=== PATIENT | male | born 1965 | race Caucasian/White ===

== ENCOUNTER 2018-09-06 18:44 | Inpatient (IN) ==
[2018-09-06] MEDS ORDERED: Acetaminophen 325 MG Tablet PO PRN (21:34)
[2018-09-06] MEDS ORDERED: Bisacodyl 10 MG Supp RECTAL PRN (21:34)
[2018-09-06] MEDS ORDERED: Potassium Phosphate Inj 30 MMOL in Sodium Chlor 0.9% Inj 250 ML IV.SIG PRN (21:39)
[2018-09-06] MEDS ORDERED: Potassium Chlor 40 mEq Premix 40 MEQ/100 ML PIGGYBACK IV.SIG PRN ×2 (21:39)
[2018-09-06] MEDS ORDERED: Potassium Phosphate 500 MG Soluble Tablet PO PRN ×2 (21:39)
[2018-09-06] MEDS ORDERED: Dextrose 50% in Water 50 ML Vial IV.PUSH PRN (21:39)
[2018-09-06] MEDS ORDERED: Potassium Chlor 20 mEq Premix 20 MEQ/100 ML PIGGYBACK IV.SIG PRN ×2 (21:39)
[2018-09-06] MEDS ORDERED: Potassium Chloride Liq 20 MEQ/15 ML UDC PO PRN ×2 (21:39)
[2018-09-06] MEDS ORDERED: Magnesium Oxide 400 MG Tablet PO PRN (21:39)
[2018-09-06] MEDS ORDERED: Vancomycin Consult Pharmacy OTHER PRN (21:39)
[2018-09-06] MEDS ORDERED: Magnesium Sulfate Inj 2 GM in Sodium Chlor 0.9% Inj 96 ML IV.SIG PRN (21:39)
[2018-09-06] MEDS ORDERED: Sodium Phosphate Inj 30 MMOL in Sodium Chlor 0.9% Inj 250 ML IV.SIG PRN (21:39)
[2018-09-06] MEDS ORDERED: Magnesium Sulfate Inj 4 GM in Sodium Chlor 0.9% Inj 92 ML IV.SIG PRN (21:39)
--- NOTE | 2018-09-06 21:40 | P.HPCC ---
History of Present Illness Service: Critical care medicine Primary Care Physician: UNKNOWN Chief Complaint: Low back pain History of Present Illness: 53-year-old male. Date of admission 09/06/2018. Past medical history includes history of L1/L2 osteomyelitis/MSSA which receives cefazolin via PICC line to the right upper extremity. Also history of hypertension, osteoporosis, COPD, nephrolithiasis and obstructive sleep apnea. Known history of cholelithiasis. In alcohol use he presented to the ED emergency department at [facility] in [place] with increasing low back pain. He is currently taking acetaminophen for pain relief. He is also complaining of nausea vomiting. Denied any focal weakness. Abdominal pain, headache or vision changes. His medication regimen is not clear. Patient was resumed to [facility] on with recurrent osteomized. His history in February 2018 is incision and drainage. He was on antibiotics until March. He had persistent bone pain and presented to the hospital June was found to have lumbar ostium mellitus underwent lumbar laminectomy. He did not receive any antibiotics and was discharged from the hospital in early July. He ran out of the oxycodone was having increasing pain with the hospital. Imaging revealed likely chronic bilateral discitis of L1/L2. He was treated with 5 days IV ceftriaxone using a PICC line as an outpatient. Cultures during the last admission for MSSA sensitive. Patient has been on cefazolin 2 g every 8 hours with a stop date of September 22, 2017. Patient states he has been compliant with his medication regimen. He is having worsening back pain presented to the [facility] for evaluation treatment. MRI of the lumbar spine revealed interval progression of discitis at L1/L2 with minimal progression of vertebral body height loss at L2. Retropulsion of the posterior-superior cortex associated disc bulging central disc protrusion causing moderate spinal canal stenosis. T12 osteomyelitis. Unchanged phlegmon with adjacent psoas musculature and bilateral L2/3 neuroforaminal surrounding is in the L2/4. Patient was accepted by Dr. 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 This includes certification that hospital inpatient services are reasonable and necessary and in the case of services not specified as inpatient-only under 42 CFR 419.22(n), that they are appropriately provided as inpatient services in accordance to with the 2-midnight benchmark under 43 CFR 412.3(e) Estimated Total Length of Stay (Days): 5 Plans for Post Hospital Care: Not yet determined Review of Systems Constitutional: Reports body ache(s), Reports fatigue, Reports fever(s), Reports lack of energy, Reports weight loss, Denies anorexia Eyes: Denies blind spots, Denies blurry vision, Denies bulging eyes Ears, Nose, Mouth, and Throat: Denies bleeding gums, Denies bad breath, Denies poor balance Cardiovascular: Denies chest pain Respiratory: Denies cough, Denies shortness of breath Gastrointestinal: Denies abdominal pain, Denies heartburn, Denies loose stools Genitourinary: Denies side pain, Denies scrotal swelling Musculoskeletal: Reports body aches, Reports muscle weakness, Reports stiffness , Denies abnormal walking Skin/Breast: Denies redness Neurologic: Reports restless legs, Reports weakness, Denies abnormal movements, Denies frequent falls, Denies headache(s), Denies localized weakness, Denies numbness, Denies sensory deficit Psychiatric: Reports anxiety, Denies abnormal sleep pattern Endocrine: Denies cold intolerance, Denies excessive sweating Hematologic/Lymphatic: Denies easy bleeding Allergic/Immunologic: Denies GI upset with certain foods PMFSH - History History Provided By: Patient - Medical History Medical History: Medical History (This Medical Record has been edited. Action required.) Alcohol abuse COPD (chronic obstructive pulmonary disease) Hypertension Nephrolithiasis Obstructive sleep apnea Osteoarthritis History of MRSA infection Onset Date: ~08/05/18 - Surgical History Surgical History: Surgical History (This Medical Record has been edited. Action required.) Chest wall abscess History of cholecystectomy History of gastric bypass History of laminectomy - Family History Family History: Family History (This Medical Record has been edited. Action required.) Other Family history of cancer - Social History I have reviewed the patient's Social History: Yes - Tobacco History Second Hand Smoke Exposure: Yes Smoking Status: Current every day smoker Tobacco Type: Cigars - Alcohol History How Often Do You Have a Drink Containing Alcohol: Monthly or less - Substance Use History Substance History: No History of Abuse Medications and Allergies Active Medications: Active Medications Acetaminophen (Tylenol) 650 mg PO Q6H PRN PRN Reason: Fever >101f Al Hydroxide/Mg Hydroxide (Milk Of [place]) 30 ml PO Q12H PRN PRN Reason: Mild Constipation Albuterol (Albuterol Neb (Radha)) 2.5 mg NEB Q2HR NEB PRN PRN Reason: SHORTNESS OF BREATH/WHEEZING Bisacodyl (Dulcolax Supp) 10 mg RECTAL DAILY PRN PRN Reason: SEVERE CONSITIPATION Chlorhexidine Gluconate (Chlorhexidine 2% Cloth) 3 pack TOPICAL DAILY@0400 RADHA Stop: 09/12/18 03:59 Chlorhexidine Gluconate (Chlorhexidine 2% Cloth) 3 pack TOPICAL DAILY@0400 PRN PRN Reason: Extra cloth needed Stop: 09/12/18 03:59 Dextrose (D50w Vial) 50 ml IV.PUSH UNSCH PRN PRN Reason: PER HYPOGLYCEMIA PROTOCOL Ferrous Sulfate (Ferosul) 325 mg PO DAILY RADHA Gabapentin (Neurontin) 300 mg PO TID RADHA Glucagon (Glucagon Inj) 1 mg OTHER PRN PRN PRN Reason: for Hypoglycemia Protocol Heparin Sodium (Porcine) (Heparin Inj) 5,000 units SQ Q12H RADHA Hydromorphone HCl (Dilaudid Pf Inj) 1 mg IV.PUSH Q4H PRN PRN Reason: PAIN SCALE 6 TO 10 Sodium Chloride (Ns Inj) 1,000 mls @ 84 mls/hr IV.CONT .[id number] RADHA Magnesium Sulfate 4 gm/ Sodium (Chloride) 100 mls @ 50 mls/hr IV.SIG UNSCH PRN PRN Reason: For Magnesium 0.9 - 1.1 mg/dL Magnesium Sulfate 2 gm/ Sodium (Chloride) 100 mls @ 50 mls/hr IV.SIG UNSCH PRN PRN Reason: For Magnesium 1.2 - 1.6 mg/dL Potassium Chloride (Kcl 40 Meq Premix Inj) 40 meq in 100 mls @ 25 mls/hr IV.SIG Q2H PRN PRN Reason: For Potassium 2.8 - 3.2 mEq/L Potassium Chloride (Kcl 20 Meq Premix Inj) 20 meq in 100 mls @ 50 mls/hr IV.SIG Q2H PRN PRN Reason: For Potassium 3.3 - 3.5 mEq/L Potassium Chloride (Kcl 40 Meq Premix Inj) 40 meq in 100 mls @ 25 mls/hr IV.SIG UNSCH PRN PRN Reason: For Potassium 3.3 - 3.5 mEq/L Potassium Chloride (Kcl 20 Meq Premix Inj) 20 meq in 100 mls @ 50 mls/hr IV.SIG Q2H PRN PRN Reason: For Potassium 2.8 - 3.2 mEq/L Potassium Phosphate 30 mmol/ (Sodium Chloride) 260 mls @ 42 mls/hr IV.SIG UNSCH PRN PRN Reason: SEE LABEL COMMENTS Sodium Phosphate 30 mmol/ (Sodium Chloride) 260 mls @ 42 mls/hr IV.SIG UNSCH PRN PRN Reason: For Phosphorus < 2.5 mg/dL Insulin Aspart (Novolog Insulin Correctional Sugar Inj) 0 unit SQ Q6HR RADHA; Protocol Lactulose (Lactulose Liq) 30 ml PO DAILY PRN PRN Reason: SEVERE CONSITIPATION Lisinopril (Prinivil) 10 mg PO BID [facility] Magnesium Oxide (Mag-Ox) 800 mg PO UNSCH PRN PRN Reason: For Magnesium 1.2 - 1.6 mg/dL Metoprolol Tartrate (Lopressor) 100 mg PO BID [facility] Ondansetron HCl (Zofran Inj) 4 mg IV.PUSH Q6H PRN PRN Reason: NAUSEA OR VOMITING Oxycodone/Acetaminophen (Percocet 5/325 Mg) 1 tab PO Q4H PRN PRN Reason: PAIN SCALE 1 TO 5 Pantoprazole Sodium (Protonix) 40 mg PO DAILY [facility] Potassium Chloride (Kcl Liq) 40 meq PO UNSCH PRN PRN Reason: Potassium level 3.3-3.5 mEq/L Potassium Chloride (Kcl Liq) 40 meq PO UNSCH PRN PRN Reason: POTASSIUM LESS THAN 3.5 Potassium Phosphate (K-Phos Original) 2,000 mg PO Q4H PRN PRN Reason: Phosphorus Less Than 2.5 mg/dL Potassium Phosphate (K-Phos Original) 2,000 mg PO UNSCH PRN PRN Reason: SEE LABEL COMMENTS Senna/Docusate Sodium ([place]-Colace) 1 tab PO BID [facility] Sennosides (Senokot) 17.2 mg PO Q12H PRN PRN Reason: Moderate Constipation Sodium Chloride (Ns Flush) 2 ml IV.FLUSH BID [facility] Sodium Chloride (Ns Flush) 2 ml IV.FLUSH PRN PRN PRN Reason: FLUSH AFTER USING IV ACCESS Tizanidine HCl (Zanaflex) 4 mg PO BID RADHA Allergies Allergy/AdvReac Type Severity Reaction Status Date / Time No Known Allergies Allergy Uncoded 08/17/18 13:28 Exam - Constitutional no acute distress - Routine HEENT Exam Head: Present: normocephalic, atraumatic Eye: Present: EOMI, PERRL, normal accommodation ENT: Present: mucous membranes moist - Routine Neck Exam Present: supple, full ROM. Absent: JVD - Routine Chest/Breast/Axilla Exam Chest wall: Absent: tenderness Breast: Absent: tenderness Axillae: Absent: lymphadenopathy - Routine Respiratory Exam Present: CTA bilaterally. Absent: accessory muscle use - Routine Cardiovascular Exam Present: RRR, S1, S2. Absent: murmur - Routine Abdominal Exam Present: soft, normoactive bowel sounds - Routine Extremities Exam Absent: cyanosis, clubbing, edema - Routine Skin Exam Present: intact - Routine Neurological Exam Present: alert, oriented X3, CN II-XII intact, motor deficit (4-5 strength bilateral lower extreme). Absent: sensory deficit Septic Shock Reassessment Septic shock perfusion: reassessment completed Caprini VTE Risk Assessment Caprini VTE Risk Assessment: No/Low Risk (score <= 1) Caprini Risk Assessment Model: Point Value = 1 Point Value = 2 Point Value = 3 Point Value = 5 Age 41-60 Minor surgery BMI > 25 kg/m2 Swollen legs Varicose veins or History of unexplained or recurrent spontaneous Oral contraceptives or hormone replacement Sepsis (< 1 month) Serious lung disease, including pneumonia (< 1 month) Abnormal pulmonary function Acute myocardial infarction Congestive heart failure (< 1 month) History of inflammatory bowel disease Medical patient at bed rest Age 61-74 Arthroscopic surgery Major open surgery (> 45 min) Laparoscopic surgery (> 45 min) Malignancy Confined to bed (> 72 hours) Immobilizing plaster cast Central venous access Age >= 75 History of VTE Family history of VTE Factor V Leiden Prothrombin [id number] Lupus anticoagulant Anticardiolipin antibodies Elevated serum homocysteine Heparin-induced thrombocytopenia Other congenital or acquired thrombophilia Stroke (< 1 month) Elective arthroplasty Hip, pelvis, or leg fracture Acute spinal cord injury (< 1 month) Prophylaxis Regimen: Total Risk Factor Score Risk Level Prophylaxis Regimen 0-1 Low Early ambulation 2 Moderate Order ONE of the following: *Sequential Compression Device (SCD) *Heparin 5000 units SQ BID 3-4 Higher Order ONE of the following medications: *Heparin 5000 units SQ TID *Enoxaparin/Lovenox 40 mg SQ daily (WT < 150 kg, CrCl > 30 mL/min) *Enoxaparin/Lovenox 30 mg SQ daily (WT < 150 kg, CrCl > 10-29 mL/min) *Enoxaparin/Lovenox 30 mg SQ BID (WT < 150 kg, CrCl > 30 mL/min) AND/OR *Sequential Compression Device (SCD) 5 or more Highest Order ONE of the following medications: *Heparin 5000 units SQ TID (Preferred with Epidurals) *Enoxaparin/Lovenox 40 mg SQ daily (WT < 150 kg, CrCl > 30 mL/min) *Enoxaparin/Lovenox 30 mg SQ daily (WT < 150 kg, CrCl > 10-29 mL/min) *Enoxaparin/Lovenox 30 mg SQ BID (WT < 150 kg, CrCl > 30 mL/min) AND *Sequential Compression Device (SCD) Assessment and Plan - Problem List (1) Osteomyelitis of lumbar spine Code(s): M46.26 - Osteomyelitis of vertebra, lumbar region Status: Chronic (2) 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 every 6 hours as needed fever Hydrocodone/acetaminophen 5/324 tablet every 4 hours. Pain 1 through 5 Hydromorphone 1 mg IV every 4 hours as needed pain 6 through 10 Continue gabapentin 300 mg 3 times daily for neuropathy Load MRI imaging from [facility] c/s CV: Essential hypertension Continue metoprolol tartrate 50 mg twice daily and lisinopril 10 mg twice daily Currently on normal saline 84 cc an hour Not requiring vasopressors Follow-up on EKG Resp: History of COPD Obstructive sleep apnea Nasal cannula to maintain saturations greater than equal 92% Incentive spirometry while awake As needed albuterol since every 2 hours. Dyspnea Chest x-ray ordered Patient is CT of the chest which revealed T6/7 osteomyelitis last admission. GI: History of cholecystectomy Advance diet as tolerated/diabetic Pantoprazole for GI prophylaxis Dexatrim/senna 1 tablet twice daily for bowel regimen : Straight catheterization/Benz catheter if indicated Endo: Sliding scale insulin Accu-Cheks every 6 hours to maintain euglycemia Renal: History of nephrolithiasis Creatinine within normal limits at prior facility Monitor urine output Accurate I's and O's Heme: Normocytic anemia History of T-cell receptor positive. TCR beta gene negative. Likely nonneoplastic lymphoid proliferation Monitor CBC daily. Follow trends. Check coag no indication for transfusion of blood products at this time ID: MSSA bacteremia Lumbar osteomyelitis Remote history of pneumonia Previously on cefazolin 2 g IV every 8 hours stop date of 6 Blood cultures x2, CRP and ESR will be drawn Start on vancomycin, ceftriaxone and metronidazole Infectious disease consultation FEN: Replace electrolytes as clinically indicated Psych: PT evaluate and treat Access -Utilize peripheral IV. Patient has a right upper extremity PICC line Prophylaxis -GI -pantoprazole -DVT -SCD/heparin subcu Level 3 H&P (3) COPD (chronic obstructive pulmonary disease) Qualifiers: COPD type: unspecified COPD Qualified Code(s): J44.9 - Chronic obstructive pulmonary disease, unspecified
[2018-09-06] MEDS ORDERED: Heparin - SQ 10,000 UNITS/ML Vial SQ SCH (22:00)
[2018-09-06] MEDS: Sod Chloride 0.9% Inj 1,000 ML IV.CONT SCH (22:51)
[2018-09-06] MEDS: HYDROmorphone PF Inj 1 MG/ML Ampul IV.PUSH PRN (23:04)
[2018-09-07] MEDS: Vancomycin Inj 1,000 MG in Sodium Chlor 0.9% Inj 250 ML IV.SIG SCH ×4 (03:13→23:21)
[2018-09-07] MEDS: Chlorhexidine Gluconate 2% 1 Pack (2 Cloths) TOPICAL SCH (03:14)
[2018-09-07] MEDS: HYDROmorphone PF Inj 1 MG/ML Ampul IV.PUSH PRN ×2 (03:14→08:41)
[2018-09-07] MEDS: Insulin NovoLOG Aspart Correctional Sugar Inj SQ SCH ×5 (03:17→23:36)
[2018-09-07 03:55] LABS: Baso % (Auto) 0.4 % (0.0-2.0); Eos # (Auto) 0.2 th/mm3 (0.0-0.4); Eos % (Auto) 2.8 % (0.0-4.0); Hematocrit 32.1 % (39.0-51.0); Hemoglobin 10.6 gm/dL (13.0-17.0); Lymph % (Auto) 30.6 % (9.0-44.0); Mean Corpuscular HGB Conc 33.2 % (32.0-36.0); Mean Corpuscular Hemoglobin 28.5 pg (27.0-34.0); Mean Corpuscular Volume 85.9 fL (80.0-100.0); Mono # (Auto) 0.4 th/mm3 (0.0-0.9); Mono % (Auto) 6.7 % (0.0-8.0); Neut # (Auto) 3.9 th/mm3 (1.8-7.7); Neut % (Auto) 59.5 % (16.0-70.0); Platelet Count 292 th/mm3 (150-450); Red Blood Count 3.73 mil/mm3 (4.50-5.90); Red Cell Distribution Width 18.5 % (11.6-17.2); White Blood Count 6.6 th/mm3 (4.0-11.0)
[2018-09-07] MEDS ORDERED: Chlorhexidine Gluconate 2% 1 Pack (2 Cloths) TOPICAL PRN (04:00)
[2018-09-07 04:02] LABS: Activated Partial Thrombo Time 26.5 sec (23.4-31.7)
[2018-09-07 04:23] LABS: Alanine Aminotransferase 16 U/L (12-78); Albumin 3.1 g/dL (3.4-5.0); Anion Gap 6 meq/L (5-15); Aspartate Aminotransferase 18 U/L (15-37); Blood Urea Nitrogen 9 mg/dL (7-18); Calcium 8.2 mg/dL (8.5-10.1); Carbon Dioxide 24.5 meq/L (21.0-32.0); Chloride 111 meq/L (98-107); Glomerular Filtration Rate Greater Than 89 mL/min (>89); Glucose,Random 98 mg/dL (74-106); Magnesium 1.7 mg/dL (1.5-2.5); Phosphorus 3.1 mg/dL (2.5-4.9); Potassium 3.8 meq/L (3.5-5.1); Sodium 141 meq/L (136-145)
[2018-09-07 04:25] LABS: Alkaline Phosphatase 127 U/L (45-117); Total Protein 7.6 g/dL (6.4-8.2)
[2018-09-07] MEDS: Senna/Docusate Sodium 8.6/50 MG Tablet PO SCH ×2 (08:31→20:54)
[2018-09-07] MEDS: Lisinopril 10 MG Tablet PO SCH ×2 (08:31→20:54)
[2018-09-07] MEDS: Gabapentin 300 MG Capsule PO SCH ×4 (08:32→18:34)
[2018-09-07] MEDS: Ferrous Sulfate 325 MG Tablet PO SCH (08:32)
[2018-09-07] MEDS: Metoprolol Tartrate 50 MG Tablet PO SCH ×2 (08:32→20:54)
[2018-09-07] MEDS ORDERED: Metoprolol Tartrate 50 MG Tablet PO SCH (09:00)
[2018-09-07] MEDS ORDERED: HYDROmorphone PF Inj 2 MG/ML Vial IV.PUSH ONE (10:15)
--- NOTE | 2018-09-07 13:13 | P.PNCC ---
Subjective Subjective Remarks/Hospital Course: 53-year-old male. Date of admission 09/06/2018. Past medical history includes history of L1/L2 osteomyelitis/MSSA which receives cefazolin via PICC line to the right upper extremity. Also history of hypertension, osteoporosis, COPD, nephrolithiasis and obstructive sleep apnea. Known history of cholelithiasis. In alcohol use he presented to the ED emergency department at [facility] in [place] with increasing low back pain. He is currently taking acetaminophen for pain relief. He is also complaining of nausea vomiting. Denied any focal weakness. Abdominal pain, headache or vision changes. His medication regimen is not clear. Patient was resumed to [facility] on with recurrent osteomized. His history in February 2018 is incision and drainage. He was on antibiotics until March. He had persistent bone pain and presented to the hospital June was found to have lumbar ostium mellitus underwent lumbar laminectomy. He did not receive any antibiotics and was discharged from the hospital in early July. He ran out of the oxycodone was having increasing pain with the hospital. Imaging revealed likely chronic bilateral discitis of L1/L2. He was treated with 5 days IV ceftriaxone using a PICC line as an outpatient. Cultures during the last admission for MSSA sensitive. Patient has been on cefazolin 2 g every 8 hours with a stop date of September 22, 2017. Patient states he has been compliant with his medication regimen. He is having worsening back pain presented to the [facility] for evaluation treatment. MRI of the lumbar spine revealed interval progression of discitis at L1/L2 with minimal progression of vertebral body height loss at L2. Retropulsion of the posterior-superior cortex associated disc bulging central disc protrusion causing moderate spinal canal stenosis. T12 osteomyelitis. Unchanged phlegmon with adjacent psoas musculature and bilateral L2/3 neuroforaminal surrounding is in the L2/4. Patient was accepted by Dr. Melendez 09/07/18: Patient lying in bed appears to be in significant pain but no focal deficits. Neurosurgery evaluation completed. MRI of the lumbar spine ordered as well as CT-guided biopsy. Infectious disease consult is pending at this. Currently on ceftriaxone and vancomycin Objective Vital Signs / I&O: Vital Signs 09/06/18 21:12 09/06/18 21:13 09/06/18 21:48 Temperature 98.6 F Pulse Rate 101 H Respiratory Rate 12 Blood Pressure 150/80 H Pulse Oximetry 99 99 100 09/06/18 22:00 09/06/18 23:00 09/06/18 23:24 Temperature Pulse Rate 104 H 105 H Respiratory Rate 13 19 18 Blood Pressure 122/68 147/78 H Pulse Oximetry 99 100 09/07/18 00:00 09/07/18 00:15 09/07/18 01:00 Temperature 97.8 F Pulse Rate 116 H 113 H 114 H Respiratory Rate 12 14 Blood Pressure 109/57 L 116/68 Pulse Oximetry 99 97 09/07/18 02:00 09/07/18 03:00 09/07/18 03:44 Temperature Pulse Rate 114 H 107 H Respiratory Rate 13 15 16 Blood Pressure 107/67 106/58 L Pulse Oximetry 98 100 09/07/18 04:00 09/07/18 04:23 09/07/18 05:00 Temperature 97.3 F L Pulse Rate 107 H 109 H 100 H Respiratory Rate 12 16 15 Blood Pressure 107/65 118/74 Pulse Oximetry 98 99 09/07/18 06:00 09/07/18 06:28 09/07/18 07:00 Temperature Pulse Rate 107 H 104 H 101 H Respiratory Rate 12 11 L Blood Pressure 119/71 126/65 Pulse Oximetry 99 99 09/07/18 08:00 09/07/18 09:00 Temperature 99.3 F Pulse Rate 101 H 97 H Respiratory Rate 13 19 Blood Pressure 128/69 129/72 Pulse Oximetry 99 99 Intake & Output 09/06/18 09/07/18 09/07/18 18:59 06:59 18:59 Intake Total 550 / 550 450 / 450 Output Total 375 / 375 Balance 175 / 175 450 / 450 Weight 71.3 kg Intake: IV 550 / 550 450 / 450 Vancomycin Inj 1,000 MG In NS 250 / 250 250 / 250 Inj 250 ML @ 250 mls/hr IV.SIG Q8H MARIVEL Rx#:[id number] Rocephin Inj 2,000 MG In NS Inj 100 / 100 100 / 100 100 ML @ 200 mls/hr IV.SIG Q12H MARIVEL Rx#:[id number] Flagyl 500 MG Inj 100 ML @ 100 200 / 200 100 / 100 mls/hr IV.SIG Q6H MARIVEL Rx#: [id number] Output: Urine 375 / 375 Other: # Voids 1 Weight On Admission 71.3 kg Result Diagrams: 09/07/18 02:46 09/07/18 02:46 Objective Remarks: - Constitutional Moderate distress due to pain. - Routine HEENT Exam Head: Present: normocephalic, atraumatic Eye: Present: EOMI, PERRL, normal accommodation ENT: Present: mucous membranes moist - Routine Neck Exam Present: supple, full ROM. Absent: JVD - Routine Respiratory Exam Present: CTA bilaterally. Absent: accessory muscle use - Routine Cardiovascular Exam Present: RRR, S1, S2. Absent: murmur - Routine Abdominal Exam Present: soft, normoactive bowel sounds - Routine Extremities Exam Absent: cyanosis, clubbing, edema - Routine Skin Exam Present: intact - Routine Neurological Exam Present: alert, oriented X3, CN II-XII intact, motor deficit (4-5 strength bilateral lower extreme). 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 every 6 hours as needed fever Hydrocodone/acetaminophen 5/324 tablet every 4 hours. Pain 1 through 5 Hydromorphone 1 mg IV every 4 hours as needed pain 6 through 10, increased to 2 mg every 4 hours Continue gabapentin 300 mg 3 times daily for neuropathy Load MRI imaging from [facility] MRI and CT guided biopsy requested by neurosurgery Neurosurgery and infectious disease official consult is pending CV: Essential hypertension Continue metoprolol tartrate 50 mg twice daily and lisinopril 10 mg twice daily Currently on normal saline 84 cc an hour Not requiring vasopressors Follow-up on EKG Resp: History of COPD Obstructive sleep apnea Nasal cannula to maintain saturations greater than equal 92% Incentive spirometry while awake As needed albuterol since every 2 hours. Dyspnea Chest x-ray ordered Patient is CT of the chest which revealed T6/7 osteomyelitis last admission. GI: History of cholecystectomy Advance diet as tolerated/diabetic Pantoprazole for GI prophylaxis Dexatrim/senna 1 tablet twice daily for bowel regimen : Straight catheterization/Benz catheter if indicated Endo: Sliding scale insulin Accu-Cheks every 6 hours to maintain euglycemia Renal: History of nephrolithiasis Creatinine within normal limits at prior facility Monitor urine output Accurate I's and O's Heme: Normocytic anemia History of T-cell receptor positive. TCR beta gene negative. Likely nonneoplastic lymphoid proliferation Monitor CBC daily. Follow trends. no indication for transfusion of blood products at this time ID: MSSA bacteremia Lumbar osteomyelitis Remote history of pneumonia Previously on cefazolin 2 g IV every 8 hours stop date of 6 Blood cultures x2, CRP and ESR will be drawn Start on vancomycin, ceftriaxone and metronidazole New MRI and CT guided biopsy requested by neurosurgery Neurosurgery and infectious disease official consult is pending FEN: Replace electrolytes as clinically indicated Psych: PT evaluate and treat Access -Utilize peripheral IV. Patient has a right upper extremity PICC line Prophylaxis -GI -pantoprazole -DVT -SCD/heparin subcu Level 2 Consult hospitalist to assume care in a.m. transferred to [facility] with telemetry (3) COPD (chronic obstructive pulmonary disease) Qualifiers: COPD type: unspecified COPD Qualified Code(s): J44.9 - Chronic obstructive pulmonary disease, unspecified
[2018-09-07] MEDS: HYDROmorphone PF Inj 2 MG/ML Vial IV.PUSH PRN ×2 (13:46→23:36)
[2018-09-07] MEDS ORDERED: fentaNYL Citrate Inj 250 MCG/5 ML Ampul ONE (15:27)
--- NOTE | 2018-09-07 15:54 | MR ---
EXAM DATE: 09/07/2018 3:36 PM EST AGE/SEX: 53 years / Male INDICATIONS: Osteomyelitis. CLINICAL DATA: This is the patient's initial encounter. Patient reports that signs and symptoms have been present for 1 day and indicates a pain score of Nonresponsive. MEDICAL/SURGICAL HISTORY: Carcinoma, pancreas. Gastric bypass. [place]PAR[place] [facility] [place]. . TECHNIQUE: Multiplanar, multisequence MRI examination of the lumbar spine was performed without and with 7 ml Gadavist (gadobutrol) contrast as a single exam dose. FINDINGS: There is near complete loss of disc space with a cleft of fluid intensity at L1-2 with associated ero sive bony change and compression deformity of the inferior endplate of L1 and superior endplate of L2 . There is retropulsion of the posterior cortex at L2 which along with bilateral facet osteophytes na rrows the central canal to approximately 8 mm. Sagital alignment is otherwise maintained. There is al so focal bone marrow edema and enhancement involving the anterior right inferior endplate of T12 vert ebral body. Mild ill-defined abnormal enhancement and edema involving the prevertebral soft tissues w ithout focal fluid collection. No evidence for epidural abscess or focal fluid collection. There is a subcutaneous peripherally enhancing fluid collection centered at T12-L1 which measures approximately 0.5 x 3.0 x 2.4 cm. Discs: There is diffuse desiccation involving the disc and the remainder of the lumbar spine. Conus: Normal level and configuration. Paraspinal Soft Tissues: No significantfocal renal abnormalities in the visualized kidneys. Visualize d aorta is non-aneurysmal. No Retroperitoneal adenopathy. T12-L1: The thecal sac has a normal diameter. No evidence of disc bulge or protrusion. The neural foramina are patent bilaterally. L2-L3: The thecal sac has a normal diameter. No evidence of disc bulge or protrusion. The neural foramina are patent bilaterally. L3-L4: The thecal sac has a normal diameter. No evidence of disc bulge or protrusion. The neural foramina are patent bilaterally. L4-L5: Mild diffuse disc bulge, minimal ligamentum flavum hypertrophy. Minimal effacement anterior thecal sac. No significant neural foraminal stenosis. L5-S1: Minimal diffuse disc bulge and mild bilateral facet arthropathy. No significant canal or john ral foraminal stenosis. CONCLUSION: 1. Findings consistent with discitis and osteomyelitis at L1-2 with prominent compression deformity of the L2 superior endplate and retropulsion of the posterior L2 cortex resulting in central canal na rrowing to about 8 mm. There is a cleft of fluid signal corresponding to the disc space. Consider aty pical infection. 2. Focal signal abnormality and abnormal enhancement involving the right anterior inferior endplate of T12 concerning for second focus of osteomyelitis. 3. No evidence for epidural abscess. 4. Minimal ill-defined prevertebral phlegmonous changes without focal drainable fluid collection. 5. Subcutaneous 2.5 x 3.0 x 2.4 cm abscess in the posterior soft tissues at the T12-L1 level. Electronically signed by: Fransisco Lux MD Board Certified Radiologist 09/07/2018 3:52 PM EST
--- NOTE | 2018-09-07 16:18 | P.RAD ---
Post Procedure Progress Note - Pre Procedure Diagnosis (1) Discitis of lumbar region - Post Procedure Diagnosis (1) Discitis of lumbar region - Procedure Information Procedure Date: 09/07/18 Supervising Radiologist: Justin Woo MD Estimated blood loss (mL): 0 Anesthesia: Local, Conscious Sedation - Plan of Activity Patient to Unit: Critical Care Patient Condition: Fair Additional Comments: Aspiration of the disc at the L1/L2 level completed. 5cc of serous hemorrhagic fluid removed from the disc space. Full dictated report to follow See PACS Report for procedural detail/treatment.
--- NOTE | 2018-09-07 16:26 | P.CONID ---
History of Present Illness Service: Infectious Disease Consult date: 09/07/18 Requesting Physician: Nam Galeana Reason for Consult: Evaluation and Mment of Infective discitis. Primary Care Provider: UNKNOWN Chief Complaint: Low back pain History of Present Illness: Mr. Mcgraw is a 53 y/o CM with PMHx of left anterior chest wall/ clavicular abscess in March 2018. He reports he had back pain even then and the focus of care remained his clavicle. Patient underwent incision and drainage on 2017 and was prescribed an antibiotic course. He then presented to the emergency department on 06/19/2018 with severe lumbago. It appears that during his February admission for his left chest wall infection he was diagnosed with MSSA bacteremia and chest wall abscess. Again during his June admission patient had biopsy of the lumbar spine area and was found to have MSSA and therefore was discharged on ceftriaxone IV using a PICC line and was supposed to follow-up with infectious disease. It appears that during his June 2018 admission patient underwent an L1 laminectomy patient then presented to [facility] on August 05, 2018 due to persistent back pain despite treatment with IV antibiotics. An MRI of the spine was done which showed osteomyelitis discitis of L1 and L2 with peripheral phlegmon extending into the ventral epidural space. No drainable abscess identified. Laminectomy of L1 to small fluid collection in the subcutaneous soft tissues also identified but deemed as possible postsurgical versus infectious process. He also has myositis of the proximal psoas muscles based on that imaging from August 05, 2018. Patient was then transferred to [facility] for possible neurosurgery. Neurosurgery did not feel any need for surgical intervention. He had blood cultures from this admission which was positive for MSSA. He was treated with IV Ancef and discharged on this regimen as he was thought to be improving. Patient had a PICC line on discharge. Patients ex agreed to take him and complete his treatment during that admission. He followed up with Dr.Reba Mathias per my discussion with her. has been concerned about patients compliance with IV antibiotics. was informed patients was not willing to keep him in her home and there was a concern for patient being homeless. These facts need to be confirmed with and patients home health company. Perhaps a bag count for Ancef IV may help to see if he has infused the appropriate amount of bags. MRI appears improved based on response. Patient had his PICC line removed after admission, repeat blood cultures are pending. Patient also had IR guided aspiration of spine ordered by Neurosurgery. At the time of my evaluation,patient is in the [facility] under critical care service but hemodynamically stable. He is oriented x 2 for me and was able to move all 4 extremities. [facility] - History History Provided By: Patient - Medical History Medical History: Medical History (Last Reviewed 09/07/18 @ 14:10 by Alayna Dawson PT) Alcohol abuse COPD (chronic obstructive pulmonary disease) Hypertension Nephrolithiasis Obstructive sleep apnea Osteoarthritis Pancreatic cancer History of MRSA infection Onset Date: ~08/05/18 - Surgical History Surgical History: Surgical History (Last Reviewed 09/07/18 @ 14:10 by Alayna Dawson PT) Chest wall abscess History of cholecystectomy History of gastric bypass History of laminectomy - Family History Family History: Family History (This Medical Record has been edited. Action required.) Other Family history of cancer - Tobacco History Second Hand Smoke Exposure: Yes Tobacco Use In Past 30 Days: Yes Smoking Status: Current every day smoker Tobacco Type: Cigars - Alcohol History How Often Do You Have a Drink Containing Alcohol: Monthly or less - Substance Use History Substance History: No History of Abuse - Travel History Recent Travel in the [place] Within the Last 8 Weeks: No Recent Travel Out of the Country Within the Last 8 Weeks: No - Immunization History Tetanus Immunization: >5 Years Hx Influenza Vaccine This Season: Yes Medications and Allergies Active Medications: Active Medications Acetaminophen (Tylenol) 650 mg PO Q6H PRN PRN Reason: Fever >101f Al Hydroxide/Mg Hydroxide (Milk Of [place] Liq) 30 ml PO Q12H PRN PRN Reason: Mild Constipation Albuterol (Albuterol Neb (Prn)) 2.5 mg NEB Q2HR NEB PRN PRN Reason: SHORTNESS OF BREATH/WHEEZING Bisacodyl (Dulcolax Supp) 10 mg RECTAL DAILY PRN PRN Reason: SEVERE CONSITIPATION Chlorhexidine Gluconate (Chlorhexidine 2% Cloth) 3 pack TOPICAL DAILY@0400 [facility] Stop: 09/12/18 03:59 Last Admin: 09/07/18 03:14 Dose: 3 pack Chlorhexidine Gluconate (Chlorhexidine 2% Cloth) 3 pack TOPICAL DAILY@0400 PRN PRN Reason: Extra cloth needed Stop: 09/12/18 03:59 Dextrose (D50w Vial) 50 ml IV.PUSH UNSCH PRN PRN Reason: PER HYPOGLYCEMIA PROTOCOL Ferrous Sulfate (Ferosul) 325 mg PO DAILY [facility] Last Admin: 09/07/18 08:32 Dose: 325 mg Gabapentin (Neurontin) 300 mg PO TID [facility] Last Admin: 09/07/18 12:21 Dose: 300 mg Glucagon (Glucagon Inj) 1 mg OTHER PRN PRN PRN Reason: for Hypoglycemia Protocol Heparin Sodium (Porcine) (Heparin Inj) 5,000 units SQ Q12H [facility] Last Admin: 09/06/18 22:52 Dose: 5,000 units Hydromorphone HCl (Dilaudid Pf Inj) 2 mg IV.PUSH Q4H PRN PRN Reason: PAIN SCALE 6 TO 10 Last Admin: 09/07/18 13:46 Dose: 2 mg Sodium Chloride (Ns Inj) 1,000 mls @ 84 mls/hr IV.CONT .[id number] [facility] Last Admin: 09/06/18 22:51 Dose: 84 mls/hr Magnesium Sulfate 4 gm/ Sodium (Chloride) 100 mls @ 50 mls/hr IV.SIG UNSCH PRN PRN Reason: For Magnesium 0.9 - 1.1 mg/dL Magnesium Sulfate 2 gm/ Sodium (Chloride) 100 mls @ 50 mls/hr IV.SIG UNSCH PRN PRN Reason: For Magnesium 1.2 - 1.6 mg/dL Potassium Chloride (Kcl 40 Meq Premix Inj) 40 meq in 100 mls @ 25 mls/hr IV.SIG Q2H PRN PRN Reason: For Potassium 2.8 - 3.2 mEq/L Potassium Chloride (Kcl 20 Meq Premix Inj) 20 meq in 100 mls @ 50 mls/hr IV.SIG Q2H PRN PRN Reason: For Potassium 3.3 - 3.5 mEq/L Potassium Chloride (Kcl 40 Meq Premix Inj) 40 meq in 100 mls @ 25 mls/hr IV.SIG UNSCH PRN PRN Reason: For Potassium 3.3 - 3.5 mEq/L Potassium Chloride (Kcl 20 Meq Premix Inj) 20 meq in 100 mls @ 50 mls/hr IV.SIG Q2H PRN PRN Reason: For Potassium 2.8 - 3.2 mEq/L Potassium Phosphate 30 mmol/ (Sodium Chloride) 260 mls @ 42 mls/hr IV.SIG UNSCH PRN PRN Reason: SEE LABEL COMMENTS Sodium Phosphate 30 mmol/ (Sodium Chloride) 260 mls @ 42 mls/hr IV.SIG UNSCH PRN PRN Reason: For Phosphorus < 2.5 mg/dL Ceftriaxone Sodium 2,000 mg/ (Sodium Chloride) 100 mls @ 200 mls/hr IV.SIG Q12H [facility] Last Infusion: 09/07/18 11:05 Dose: Infused Metronidazole/Sodium Chloride (Flagyl 500 Mg Inj) 100 mls @ 100 mls/hr IV.SIG Q6H [facility] Last Infusion: 09/07/18 12:00 Dose: Infused Vancomycin HCl 1,000 mg/ (Sodium Chloride) 250 mls @ 250 mls/hr IV.SIG Q8H [facility] Last Infusion: 09/07/18 10:22 Dose: Infused Insulin Aspart (Novolog Insulin Correctional Sugar Inj) 0 unit SQ Q6HR [facility]; Protocol Last Admin: 09/07/18 12:21 Dose: Not Given Lactulose (Lactulose Liq) 30 ml PO DAILY PRN PRN Reason: SEVERE CONSITIPATION Lisinopril (Prinivil) 10 mg PO BID [facility] Last Admin: 09/07/18 08:31 Dose: 10 mg Magnesium Oxide (Mag-Ox) 800 mg PO UNSCH PRN PRN Reason: For Magnesium 1.2 - 1.6 mg/dL Metoprolol Tartrate (Lopressor) 50 mg PO BID [facility] Last Admin: 09/07/18 08:32 Dose: 50 mg Miscellaneous Information ([facility] Ordered Lab Info) 0 each OTHER ONCE ONE Stop: 09/07/18 23:46 Mupirocin (Bactroban 2% Nasal Oint) 1 applicatio EACH NARE BID [facility] Stop: 09/12/18 09:01 Ondansetron HCl (Zofran Inj) 4 mg IV.PUSH Q6H PRN PRN Reason: NAUSEA OR VOMITING Oxycodone/Acetaminophen (Percocet 5/325 Mg) 1 tab PO Q4H PRN PRN Reason: PAIN SCALE 1 TO 5 Last Admin: 09/07/18 10:10 Dose: 1 tab Pantoprazole Sodium (Protonix) 40 mg PO DAILY [facility] Last Admin: 09/07/18 08:32 Dose: 40 mg Pharmacy Profile Note (Vancomycin Consult Pharmacy) 1 each OTHER UNSCH PRN PRN Reason: Pharmacy to dose Potassium Chloride (Kcl Liq) 40 meq PO UNSCH PRN PRN Reason: Potassium level 3.3-3.5 mEq/L Potassium Chloride (Kcl Liq) 40 meq PO UNSCH PRN PRN Reason: POTASSIUM LESS THAN 3.5 Potassium Phosphate (K-Phos Original) 2,000 mg PO Q4H PRN PRN Reason: Phosphorus Less Than 2.5 mg/dL Potassium Phosphate (K-Phos Original) 2,000 mg PO UNSCH PRN PRN Reason: SEE LABEL COMMENTS Senna/Docusate Sodium ([place]-Colace) 1 tab PO BID [facility] Last Admin: 09/07/18 08:31 Dose: 1 tab Sennosides (Senokot) 17.2 mg PO Q12H PRN PRN Reason: Moderate Constipation Sodium Chloride (Ns Flush) 2 ml IV.FLUSH BID [facility] Last Admin: 09/07/18 08:32 Dose: 2 ml Sodium Chloride (Ns Flush) 2 ml IV.FLUSH PRN PRN PRN Reason: FLUSH AFTER USING IV ACCESS Tizanidine HCl (Zanaflex) 4 mg PO BID [facility] Last Admin: 09/07/18 08:32 Dose: 4 mg Allergies Allergy/AdvReac Type Severity Reaction Status Date / Time No Known Allergies Allergy none Uncoded 09/06/18 23:22 Exam Vital signs: Vital Signs 09/06/18 21:12 09/06/18 21:13 09/06/18 21:48 Temperature 98.6 F Pulse Rate 101 H Respiratory Rate 12 Blood Pressure 150/80 H Pulse Oximetry 99 99 100 09/06/18 22:00 09/06/18 23:00 09/06/18 23:24 Temperature Pulse Rate 104 H 105 H Respiratory Rate 13 19 18 Blood Pressure 122/68 147/78 H Pulse Oximetry 99 100 09/07/18 00:00 09/07/18 00:15 09/07/18 01:00 Temperature 97.8 F Pulse Rate 116 H 113 H 114 H Respiratory Rate 12 14 Blood Pressure 109/57 L 116/68 Pulse Oximetry 99 97 09/07/18 02:00 09/07/18 03:00 09/07/18 03:44 Temperature Pulse Rate 114 H 107 H Respiratory Rate 13 15 16 Blood Pressure 107/67 106/58 L Pulse Oximetry 98 100 09/07/18 04:00 09/07/18 04:23 09/07/18 05:00 Temperature 97.3 F L Pulse Rate 107 H 109 H 100 H Respiratory Rate 12 16 15 Blood Pressure 107/65 118/74 Pulse Oximetry 98 99 09/07/18 06:00 09/07/18 06:28 09/07/18 07:00 Temperature Pulse Rate 107 H 104 H 101 H Respiratory Rate 12 11 L Blood Pressure 119/71 126/65 Pulse Oximetry 99 99 09/07/18 08:00 09/07/18 09:00 09/07/18 10:00 Temperature 99.3 F Pulse Rate 101 H 97 H 90 Respiratory Rate 13 19 40 H Blood Pressure 128/69 129/72 155/91 H Pulse Oximetry 99 99 99 09/07/18 11:00 09/07/18 11:04 09/07/18 12:00 Temperature 98.0 F Pulse Rate 88 85 87 Respiratory Rate 33 H 14 8 L Blood Pressure 111/66 114/64 Pulse Oximetry 97 97 95 09/07/18 13:00 09/07/18 14:00 09/07/18 14:30 Temperature Pulse Rate 82 89 Respiratory Rate 9 L 7 L 11 L Blood Pressure 124/67 120/67 Pulse Oximetry 100 93 L Intake & Output 09/06/18 09/07/18 09/07/18 18:59 06:59 18:59 Intake Total 550 / 550 450 / 450 Output Total 375 / 375 Balance 175 / 175 450 / 450 Weight 71.3 kg Intake: IV 550 / 550 450 / 450 Vancomycin Inj 1,000 MG In NS 250 / 250 250 / 250 Inj 250 ML @ 250 mls/hr IV.SIG Q8H [facility] Rx#:[id number] Rocephin Inj 2,000 MG In NS Inj 100 / 100 100 / 100 100 ML @ 200 mls/hr IV.SIG Q12H [facility] Rx#:[id number] Flagyl 500 MG Inj 100 ML @ 100 200 / 200 100 / 100 mls/hr IV.SIG Q6H [facility] Rx#: [id number] Output: Urine 375 / 375 Other: # Voids 1 Weight On Admission 71.3 kg Narrative: GENERAL: Well-nourished well-developed, not in acute distress SKIN: Cool and dry, no generalized rash HEAD: Atraumatic. Normocephalic. No temporal or scalp tenderness. EYES: Pupils equal round and reactive. Scleral icterus. No injection or drainage. No petechia ENT: Nothing abnormal detected NECK: Trachea midline. Supple, nontender, no meningeal signs. CARDIOVASCULAR: HS audible. RESPIRATORY: Clear to auscultation bilaterally. GASTROINTESTINAL: Abdomen soft nontender. MUSCULOSKELETAL: Extremities without clubbing, cyanosis. NEUROLOGICAL: Alert oriented 3. Nonfocal. Psych cooperative IV line sites ok. Results - Labs CBC & Chem 7: 09/07/18 02:46 09/07/18 02:46 Labs: Laboratory Results - last 24 hr 09/06/18 09/06/18 09/06/18 21:40 22:25 22:25 WBC RBC Hgb Hct MCV MCH MCHC RDW Plt Count MPV Neut % (Auto) Lymph % (Auto) Cherry % (Auto) Eos % (Auto) Baso % (Auto) Neut # (Auto) Lymph # (Auto) Cherry # (Auto) Eos # (Auto) Baso # (Auto) WBC Differential Differential Comment ESR PT INR APTT Sodium Potassium Chloride Carbon Dioxide Anion Gap BUN Creatinine Estimated GFR POC Glucose Random Glucose Calcium Phosphorus Magnesium Total Bilirubin AST ALT Alkaline Phosphatase Total Creatine Kinase 34 L C-Reactive Protein 0.92 H Total Protein Albumin Nasal Screen MRSA (PCR) Mrsa detected 09/06/18 09/07/18 09/07/18 23:41 02:46 02:46 WBC 6.6 RBC 3.73 L Hgb 10.6 L Hct 32.1 L MCV 85.9 MCH 28.5 MCHC 33.2 RDW 18.5 H Plt Count 292 MPV 7.0 Neut % (Auto) 59.5 Lymph % (Auto) 30.6 Cherry % (Auto) 6.7 Eos % (Auto) 2.8 Baso % (Auto) 0.4 Neut # (Auto) 3.9 Lymph # (Auto) 2.0 Cherry # (Auto) 0.4 Eos # (Auto) 0.2 Baso # (Auto) 0.0 WBC Differential . Differential Comment Auto diff final ESR PT 10.0 INR 1.0 APTT 26.5 Sodium Potassium Chloride Carbon Dioxide Anion Gap BUN Creatinine Estimated GFR POC Glucose 127 H Random Glucose Calcium Phosphorus Magnesium Total Bilirubin AST ALT Alkaline Phosphatase Total Creatine Kinase C-Reactive Protein Total Protein Albumin Nasal Screen MRSA (PCR) 09/07/18 09/07/18 09/07/18 02:46 02:46 06:45 WBC RBC Hgb Hct MCV MCH MCHC RDW Plt Count MPV Neut % (Auto) Lymph % (Auto) Cherry % (Auto) Eos % (Auto) Baso % (Auto) Neut # (Auto) Lymph # (Auto) Cherry # (Auto) Eos # (Auto) Baso # (Auto) WBC Differential Differential Comment ESR 30 H PT INR APTT Sodium 141 Potassium 3.8 Chloride 111 H Carbon Dioxide 24.5 Anion Gap 6 BUN 9 Creatinine 0.42 L Estimated GFR Greater than 89 POC Glucose 80 Random Glucose 98 Calcium 8.2 L Phosphorus 3.1 Magnesium 1.7 Total Bilirubin 0.2 AST 18 ALT 16 Alkaline Phosphatase 127 H Total Creatine Kinase C-Reactive Protein Total Protein 7.6 D Albumin 3.1 L Nasal Screen MRSA (PCR) 09/07/18 09/07/18 09/07/18 10:54 10:54 12:20 WBC RBC Hgb Hct MCV MCH MCHC RDW Plt Count MPV Neut % (Auto) Lymph % (Auto) Cherry % (Auto) Eos % (Auto) Baso % (Auto) Neut # (Auto) Lymph # (Auto) Cherry # (Auto) Eos # (Auto) Baso # (Auto) WBC Differential Differential Comment ESR 36 H PT INR APTT Sodium Potassium Chloride Carbon Dioxide Anion Gap BUN Creatinine Estimated GFR POC Glucose 116 H Random Glucose Calcium Phosphorus Magnesium Total Bilirubin AST ALT Alkaline Phosphatase Total Creatine Kinase C-Reactive Protein 1.59 H Total Protein Albumin Nasal Screen MRSA (PCR) - Imaging Impressions Lumbar Spine MRI 09/07/18 08:51 CONCLUSION: 1. Findings consistent with discitis and osteomyelitis at L1-2 with prominent compression deformity of the L2 superior endplate and retropulsion of the posterior L2 cortex resulting in central canal narrowing to about 8 mm. There is a cleft of fluid signal corresponding to the disc space. Consider atypical infection. 2. Focal signal abnormality and abnormal enhancement involving the right anterior inferior endplate of T12 concerning for second focus of osteomyelitis. 3. No evidence for epidural abscess. 4. Minimal ill-defined prevertebral phlegmonous changes without focal drainable fluid collection. 5. Subcutaneous 2.5 x 3.0 x 2.4 cm abscess in the posterior soft tissues at the T12-L1 level. Assessment and Plan - Plan Infective Discitis (CRP improved from 21 first admission to 0.95 this admission) MSSA bacteremia h/o MRSA infection Clavicular abscess COPD by history Recs Continue Ceftriaxone IV Continue Flagyl IV for now Continue Vanco IV (target 15-20 for discitis) Follow cultures to adjust antibiotics. Follow clinical course. tala Mathias concern for non compliance. Will dw home health to obtain IV Ancef bag count to assess compliance. tala Galeana MRI improved based on his review. No neurosurgical plans per my dw him.
--- NOTE | 2018-09-07 17:44 | P.CONNS ---
History of Present Illness Service: [facility] Primary Care Provider: UNKNOWN Chief Complaint: Low back pain History of Present Illness: 53yoM with MSSA bacteremia and L1/2 osteo prior admission readmitted with worsening back pain. On directed questioning with ID, patient has been noncompliant with treatment. Repeat MRI obtained today shows stable compared to prior, though report suggested worsening. ESR 36, CRP 0.99-1.5. [facility] - History History Provided By: Patient - Medical History Medical History: Medical History (Last Reviewed 09/07/18 @ 14:10 by Alayna Dawson, PT) Alcohol abuse COPD (chronic obstructive pulmonary disease) Hypertension Nephrolithiasis Obstructive sleep apnea Osteoarthritis Pancreatic cancer History of MRSA infection Onset Date: ~08/05/18 - Surgical History Surgical History: Surgical History (Last Reviewed 09/07/18 @ 14:10 by Alayna Dawson, PT) Chest wall abscess History of cholecystectomy History of gastric bypass History of laminectomy - Family History Family History: Family History (This Medical Record has been edited. Action required.) Other Family history of cancer - Tobacco History Second Hand Smoke Exposure: Yes Tobacco Use In Past 30 Days: Yes Smoking Status: Current every day smoker Tobacco Type: Cigars - Alcohol History How Often Do You Have a Drink Containing Alcohol: Monthly or less - Substance Use History Substance History: No History of Abuse - Travel History Recent Travel in the [place] Within the Last 8 Weeks: No Recent Travel Out of the Country Within the Last 8 Weeks: No - Immunization History Tetanus Immunization: >5 Years Hx Influenza Vaccine This Season: Yes Medications and Allergies Active Medications: Active Medications Acetaminophen (Tylenol) 650 mg PO Q6H PRN PRN Reason: Fever >101f Al Hydroxide/Mg Hydroxide (Milk Of [place]) 30 ml PO Q12H PRN PRN Reason: Mild Constipation Albuterol (Albuterol Neb (Prn)) 2.5 mg NEB Q2HR NEB PRN PRN Reason: SHORTNESS OF BREATH/WHEEZING Bisacodyl (Dulcolax Supp) 10 mg RECTAL DAILY PRN PRN Reason: SEVERE CONSITIPATION Chlorhexidine Gluconate (Chlorhexidine 2% Cloth) 3 pack TOPICAL DAILY@0400 [facility] Stop: 09/12/18 03:59 Last Admin: 09/07/18 03:14 Dose: 3 pack Chlorhexidine Gluconate (Chlorhexidine 2% Cloth) 3 pack TOPICAL DAILY@0400 PRN PRN Reason: Extra cloth needed Stop: 09/12/18 03:59 Dextrose (D50w Vial) 50 ml IV.PUSH UNSCH PRN PRN Reason: PER HYPOGLYCEMIA PROTOCOL Ferrous Sulfate (Ferosul) 325 mg PO DAILY [facility] Last Admin: 09/07/18 08:32 Dose: 325 mg Gabapentin (Neurontin) 300 mg PO TID [facility] Last Admin: 09/07/18 17:14 Dose: Not Given Glucagon (Glucagon Inj) 1 mg OTHER PRN PRN PRN Reason: for Hypoglycemia Protocol Heparin Sodium (Porcine) (Heparin Inj) 5,000 units SQ Q12H [facility] Last Admin: 09/06/18 22:52 Dose: 5,000 units Hydromorphone HCl (Dilaudid Pf Inj) 2 mg IV.PUSH Q4H PRN PRN Reason: PAIN SCALE 6 TO 10 Last Admin: 09/07/18 13:46 Dose: 2 mg Sodium Chloride (Ns Inj) 1,000 mls @ 84 mls/hr IV.CONT .[id number] [facility] Last Infusion: 09/07/18 17:17 Dose: 84 mls/hr Magnesium Sulfate 4 gm/ Sodium (Chloride) 100 mls @ 50 mls/hr IV.SIG UNSCH PRN PRN Reason: For Magnesium 0.9 - 1.1 mg/dL Magnesium Sulfate 2 gm/ Sodium (Chloride) 100 mls @ 50 mls/hr IV.SIG UNSCH PRN PRN Reason: For Magnesium 1.2 - 1.6 mg/dL Potassium Chloride (Kcl 40 Meq Premix Inj) 40 meq in 100 mls @ 25 mls/hr IV.SIG Q2H PRN PRN Reason: For Potassium 2.8 - 3.2 mEq/L Potassium Chloride (Kcl 20 Meq Premix Inj) 20 meq in 100 mls @ 50 mls/hr IV.SIG Q2H PRN PRN Reason: For Potassium 3.3 - 3.5 mEq/L Potassium Chloride (Kcl 40 Meq Premix Inj) 40 meq in 100 mls @ 25 mls/hr IV.SIG UNSCH PRN PRN Reason: For Potassium 3.3 - 3.5 mEq/L Potassium Chloride (Kcl 20 Meq Premix Inj) 20 meq in 100 mls @ 50 mls/hr IV.SIG Q2H PRN PRN Reason: For Potassium 2.8 - 3.2 mEq/L Potassium Phosphate 30 mmol/ (Sodium Chloride) 260 mls @ 42 mls/hr IV.SIG UNSCH PRN PRN Reason: SEE LABEL COMMENTS Sodium Phosphate 30 mmol/ (Sodium Chloride) 260 mls @ 42 mls/hr IV.SIG UNSCH PRN PRN Reason: For Phosphorus < 2.5 mg/dL Ceftriaxone Sodium 2,000 mg/ (Sodium Chloride) 100 mls @ 200 mls/hr IV.SIG Q12H [facility] Last Infusion: 09/07/18 11:05 Dose: Infused Metronidazole/Sodium Chloride (Flagyl 500 Mg Inj) 100 mls @ 100 mls/hr IV.SIG Q6H [facility] Last Admin: 09/07/18 17:14 Dose: 100 mls/hr Vancomycin HCl 1,000 mg/ (Sodium Chloride) 250 mls @ 250 mls/hr IV.SIG Q8H [facility] Last Infusion: 09/07/18 10:22 Dose: Infused Insulin Aspart (Novolog Insulin Correctional Sugar Inj) 0 unit SQ Q6HR [facility]; Protocol Last Admin: 09/07/18 12:21 Dose: Not Given Lactulose (Lactulose Liq) 30 ml PO DAILY PRN PRN Reason: SEVERE CONSITIPATION Lisinopril (Prinivil) 10 mg PO BID [facility] Last Admin: 09/07/18 08:31 Dose: 10 mg Magnesium Oxide (Mag-Ox) 800 mg PO UNSCH PRN PRN Reason: For Magnesium 1.2 - 1.6 mg/dL Metoprolol Tartrate (Lopressor) 50 mg PO BID [facility] Last Admin: 09/07/18 08:32 Dose: 50 mg Miscellaneous Information ([facility] Ordered Lab Info) 0 each OTHER ONCE ONE Stop: 09/07/18 23:46 Mupirocin (Bactroban 2% Nasal Oint) 1 applicatio EACH NARE BID [facility] Stop: 09/12/18 09:01 Ondansetron HCl (Zofran Inj) 4 mg IV.PUSH Q6H PRN PRN Reason: NAUSEA OR VOMITING Oxycodone/Acetaminophen (Percocet 5/325 Mg) 1 tab PO Q4H PRN PRN Reason: PAIN SCALE 1 TO 5 Last Admin: 09/07/18 10:10 Dose: 1 tab Pantoprazole Sodium (Protonix) 40 mg PO DAILY [facility] Last Admin: 09/07/18 08:32 Dose: 40 mg Pharmacy Profile Note (Vancomycin Consult Pharmacy) 1 each OTHER UNSCH PRN PRN Reason: Pharmacy to dose Potassium Chloride (Kcl Liq) 40 meq PO UNSCH PRN PRN Reason: Potassium level 3.3-3.5 mEq/L Potassium Chloride (Kcl Liq) 40 meq PO UNSCH PRN PRN Reason: POTASSIUM LESS THAN 3.5 Potassium Phosphate (K-Phos Original) 2,000 mg PO Q4H PRN PRN Reason: Phosphorus Less Than 2.5 mg/dL Potassium Phosphate (K-Phos Original) 2,000 mg PO UNSCH PRN PRN Reason: SEE LABEL COMMENTS Senna/Docusate Sodium ([place]-Colace) 1 tab PO BID [facility] Last Admin: 09/07/18 08:31 Dose: 1 tab Sennosides (Senokot) 17.2 mg PO Q12H PRN PRN Reason: Moderate Constipation Sodium Chloride (Ns Flush) 2 ml IV.FLUSH BID [facility] Last Admin: 09/07/18 08:32 Dose: 2 ml Sodium Chloride (Ns Flush) 2 ml IV.FLUSH PRN PRN PRN Reason: FLUSH AFTER USING IV ACCESS Tizanidine HCl (Zanaflex) 4 mg PO BID [facility] Last Admin: 09/07/18 08:32 Dose: 4 mg Allergies Allergy/AdvReac Type Severity Reaction Status Date / Time No Known Allergies Allergy none Uncoded 09/06/18 23:22 Exam Vital signs: Vital Signs 09/06/18 21:12 09/06/18 21:13 09/06/18 21:48 Temperature 98.6 F Pulse Rate 101 H Respiratory Rate 12 Blood Pressure 150/80 H Pulse Oximetry 99 99 100 09/06/18 22:00 09/06/18 23:00 09/06/18 23:24 Temperature Pulse Rate 104 H 105 H Respiratory Rate 13 19 18 Blood Pressure 122/68 147/78 H Pulse Oximetry 99 100 09/07/18 00:00 09/07/18 00:15 09/07/18 01:00 Temperature 97.8 F Pulse Rate 116 H 113 H 114 H Respiratory Rate 12 14 Blood Pressure 109/57 L 116/68 Pulse Oximetry 99 97 09/07/18 02:00 09/07/18 03:00 09/07/18 03:44 Temperature Pulse Rate 114 H 107 H Respiratory Rate 13 15 16 Blood Pressure 107/67 106/58 L Pulse Oximetry 98 100 09/07/18 04:00 09/07/18 04:23 09/07/18 05:00 Temperature 97.3 F L Pulse Rate 107 H 109 H 100 H Respiratory Rate 12 16 15 Blood Pressure 107/65 118/74 Pulse Oximetry 98 99 09/07/18 06:00 09/07/18 06:28 09/07/18 07:00 Temperature Pulse Rate 107 H 104 H 101 H Respiratory Rate 12 11 L Blood Pressure 119/71 126/65 Pulse Oximetry 99 99 09/07/18 08:00 09/07/18 09:00 09/07/18 10:00 Temperature 99.3 F Pulse Rate 101 H 97 H 90 Respiratory Rate 13 19 40 H Blood Pressure 128/69 129/72 155/91 H Pulse Oximetry 99 99 99 09/07/18 11:00 09/07/18 11:04 09/07/18 12:00 Temperature 98.0 F Pulse Rate 88 85 87 Respiratory Rate 33 H 14 8 L Blood Pressure 111/66 114/64 Pulse Oximetry 97 97 95 09/07/18 13:00 09/07/18 14:00 09/07/18 14:30 Temperature Pulse Rate 82 89 Respiratory Rate 9 L 7 L 11 L Blood Pressure 124/67 120/67 Pulse Oximetry 100 93 L Intake & Output 09/06/18 09/07/18 09/07/18 18:59 06:59 18:59 Intake Total 550 / 550 450 / 450 Output Total 375 / 375 Balance 175 / 175 450 / 450 Weight 71.3 kg Intake: IV 550 / 550 450 / 450 Vancomycin Inj 1,000 MG In NS 250 / 250 250 / 250 Inj 250 ML @ 250 mls/hr IV.SIG Q8H [facility] Rx#:[id number] Rocephin Inj 2,000 MG In NS Inj 100 / 100 100 / 100 100 ML @ 200 mls/hr IV.SIG Q12H [facility] Rx#:[id number] Flagyl 500 MG Inj 100 ML @ 100 200 / 200 100 / 100 mls/hr IV.SIG Q6H [facility] Rx#: [id number] Output: Urine 375 / 375 Other: # Voids 1 Weight On Admission 71.3 kg Narrative: A&O x 3 CN II-XII intact Motor 5/5 UE/LE Sensation intact light touch Results - Laboratory Findings CBC and BMP: 09/07/18 02:46 09/07/18 02:46 Abnormal lab findings: Abnormal Labs 09/06/18 09/06/18 09/06/18 22:25 22:25 23:41 RBC Hgb Hct RDW ESR Chloride Creatinine POC Glucose 127 H Calcium Alkaline Phosphatase Total Creatine Kinase 34 L C-Reactive Protein 0.92 H Albumin 09/07/18 09/07/18 09/07/18 02:46 02:46 02:46 RBC 3.73 L Hgb 10.6 L Hct 32.1 L RDW 18.5 H ESR 30 H Chloride 111 H Creatinine 0.42 L POC Glucose Calcium 8.2 L Alkaline Phosphatase 127 H Total Creatine Kinase C-Reactive Protein Albumin 3.1 L 09/07/18 09/07/18 09/07/18 10:54 10:54 12:20 RBC Hgb Hct RDW ESR 36 H Chloride Creatinine POC Glucose 116 H Calcium Alkaline Phosphatase Total Creatine Kinase C-Reactive Protein 1.59 H Albumin Assessment and Plan - Plan Recurrent osteo/discitis at L1/2 and T12, history of MSSA infection. MRI L-spine with contrast ESR/CRP repeat CT guided biopsy ID consult No neurosurgical indication at this time, may transfer back once cleared by allied services and if they are convinced that he was noncompliant rather than incompletely covered
[2018-09-07] MEDS ORDERED: Gadobutrol PF 7.5 MMOL/7.5 ML Vial (for RAD) IV.SIG ONE (17:50)
[2018-09-07] MEDS: Mupirocin 2% Nasal Oint Topical Syringe EACH NARE SCH (20:55)
[2018-09-07] MEDS: Sod Chloride 0.9% Inj 1,000 ML IV.CONT SCH ×2 (21:03→23:20)
[2018-09-07] MEDS ORDERED: Pharmacy Ordered Lab Info OTHER ONE (23:45)
[2018-09-08] MEDS: HYDROmorphone PF Inj 2 MG/ML Vial IV.PUSH PRN ×4 (03:18→20:59)
[2018-09-08] MEDS: Chlorhexidine Gluconate 2% 1 Pack (2 Cloths) TOPICAL SCH (06:15)
[2018-09-08 06:48] LABS: Glomerular Filtration Rate Greater Than 89 mL/min (>89)
[2018-09-08] MEDS: Vancomycin Inj 1,000 MG in Sodium Chlor 0.9% Inj 250 ML IV.SIG SCH ×2 (07:59→17:37)
[2018-09-08] MEDS: Gabapentin 300 MG Capsule PO SCH ×3 (08:00→17:35)
[2018-09-08] MEDS: Lisinopril 10 MG Tablet PO SCH ×2 (08:00→20:58)
[2018-09-08] MEDS: Senna/Docusate Sodium 8.6/50 MG Tablet PO SCH ×2 (08:00→20:59)
[2018-09-08] MEDS: Ferrous Sulfate 325 MG Tablet PO SCH (08:00)
[2018-09-08] MEDS: Mupirocin 2% Nasal Oint Topical Syringe EACH NARE SCH ×2 (08:00→21:01)
[2018-09-08] MEDS: Metoprolol Tartrate 50 MG Tablet PO SCH ×2 (08:00→20:58)
--- NOTE | 2018-09-08 10:32 | P.PNNS ---
Subjective Interval history: remains painful in low back, no new complaints. <Judy Bryant - Last Filed: 09/08/18 10:26> Physical Exam Vital signs: Vital Signs 09/07/18 11:00 09/07/18 11:04 09/07/18 12:00 Temperature 98.0 F Pulse Rate 88 85 87 Respiratory Rate 33 H 14 8 L Blood Pressure 111/66 114/64 Pulse Oximetry 97 97 95 09/07/18 13:00 09/07/18 14:00 09/07/18 14:30 Temperature Pulse Rate 82 89 Respiratory Rate 9 L 7 L 11 L Blood Pressure 124/67 120/67 Pulse Oximetry 100 93 L 09/07/18 15:28 09/07/18 15:36 09/07/18 16:00 Temperature Pulse Rate 103 H 102 H Respiratory Rate 14 14 11 L Blood Pressure 135/80 Pulse Oximetry 94 L 09/07/18 16:24 09/07/18 17:00 09/07/18 17:47 Temperature 98.5 F Pulse Rate 104 H 98 H Respiratory Rate 11 L 10 L Blood Pressure 147/85 H Pulse Oximetry 97 91 L 97 09/07/18 18:00 09/07/18 19:03 09/07/18 20:00 Temperature Pulse Rate 98 H 96 H Respiratory Rate 22 12 12 Blood Pressure 142/83 H Pulse Oximetry 98 100 09/07/18 20:22 09/07/18 22:00 09/08/18 00:30 Temperature 98.0 F Pulse Rate 86 92 H Respiratory Rate 18 Blood Pressure 140/80 Pulse Oximetry 96 98 09/08/18 04:00 09/08/18 08:00 09/08/18 09:16 Temperature 97.7 F 98.1 F Pulse Rate 97 H 88 Respiratory Rate 18 16 Blood Pressure 125/65 131/69 Pulse Oximetry 95 98 98 Intake & Output 09/07/18 09/08/18 09/08/18 18:59 06:59 18:59 Intake Total 800 / 800 2250 / 2250 Output Total 1150 / 1150 1500 / 1500 Balance -350 / -350 750 / 750 Weight 71.3 kg Intake: IV 800 / 800 1550 / 1550 NS Inj 1,000 ML @ 84 mls/hr IV. 1000 / 1000 CONT .[id number] COUNT INCLUDES [facility] Rx#:[id number] Vancomycin Inj 1,000 MG In NS 500 / 500 250 / 250 Inj 250 ML @ 250 mls/hr IV.SIG Q8H [facility] Rx#:[id number] Rocephin Inj 2,000 MG In NS Inj 100 / 100 100 / 100 100 ML @ 200 mls/hr IV.SIG Q12H [facility] Rx#:[id number] Flagyl 500 MG Inj 100 ML @ 100 200 / 200 200 / 200 mls/hr IV.SIG Q6H [facility] Rx#: [id number] Oral 700 / 700 Output: Urine 675 / 675 1500 / 1500 Urine Amount (Catheter) 475 / 475 Straight 475 / 475 Other: # Voids 3 1 Date of Last Bowel Movement 09/06/18 # Bowel Movements 0 Narrative: A&O x 3 CN II-XII intact Motor 5/5 UE/LE Sensation intact light touch - Urinary Catheter Management Straight Cath placed during this visit: yes Reason for continuing: Not indwelling catheter Insertion date: 09/07/18 Insertion time: 17:30 <Judy Bryant - Last Filed: 09/08/18 10:26> Vital signs: Vital Signs 09/07/18 18:00 09/07/18 19:03 09/07/18 20:00 Temperature Pulse Rate 98 H 96 H Respiratory Rate 22 12 12 Blood Pressure 142/83 H Pulse Oximetry 98 100 09/07/18 20:22 09/07/18 22:00 09/08/18 00:30 Temperature 98.0 F Pulse Rate 86 92 H Respiratory Rate 18 Blood Pressure 140/80 Pulse Oximetry 96 98 09/08/18 04:00 09/08/18 08:00 09/08/18 09:16 Temperature 97.7 F 98.1 F Pulse Rate 97 H 88 Respiratory Rate 18 16 Blood Pressure 125/65 131/69 Pulse Oximetry 95 98 98 09/08/18 12:00 Temperature 98.0 F Pulse Rate 76 Respiratory Rate 18 Blood Pressure 125/71 Pulse Oximetry Intake & Output 09/07/18 09/08/18 09/08/18 18:59 06:59 18:59 Intake Total 800 / 800 2250 / 2250 2210 / 2210 Output Total 1150 / 1150 1500 / 1500 850 / 850 Balance -350 / -350 750 / 750 1360 / 1360 Weight 71.3 kg Intake: IV 800 / 800 1550 / 1550 1250 / 1250 NS Inj 1,000 ML @ 84 mls/hr IV. 1000 / 1000 1000 / 1000 CONT .[id number] [facility] Rx#:[id number] Vancomycin Inj 1,000 MG In NS 500 / 500 250 / 250 250 / 250 Inj 250 ML @ 250 mls/hr IV.SIG Q8H [facility] Rx#:[id number] Rocephin Inj 2,000 MG In NS Inj 100 / 100 100 / 100 100 ML @ 200 mls/hr IV.SIG Q12H [facility] Rx#:[id number] Flagyl 500 MG Inj 100 ML @ 100 200 / 200 200 / 200 mls/hr IV.SIG Q6H [facility] Rx#: [id number] Oral 700 / 700 960 / 960 Output: Urine 675 / 675 1500 / 1500 850 / 850 Urine Amount (Catheter) 475 / 475 Straight 475 / 475 Other: # Voids 3 1 Date of Last Bowel Movement 09/06/18 # Bowel Movements 0 1 - Urinary Catheter Management Straight Cath placed during this visit: no <Nam Galeana - Last Filed: 09/08/18 17:50> Assessment and Plan - Plan Recurrent osteo/discitis at L1/2 and T12, history of MSSA infection. MRI L-spine with contrast ESR/CRP repeat CT guided biopsy ID consult No neurosurgical indication at this time, may transfer back once cleared by allied services and if they are convinced that he was noncompliant rather than incompletely covered 09/08/2018 MRI Lumbar spine w/wo contrast was reviewed by neurosurgery team, patient underwent CT guided biopsy of L1-2 discitis, cultures pending patient remains neurologically intact obtain TLSO to be worn out of bed continue with antibiotic therapy - will defer to Infectious Disease no further neurosurgical interventions planned will sign off, call prn patient to follow up [facility] office in 1 month with f/u CT Lumbar spine, ESR, CRP <Judy Bryant - Last Filed: 09/08/18 10:26> - Attending Attestation The exam, history, and the medical decision-making described in the above note were completed with the assistance of the mid-level provider. I reviewed and agree with the findings presented. I attest that I had a [id number] encounter with the patient on the same day, and personally performed and documented my assessment and findings in the medical record. <Nam Galeana - Last Filed: 09/08/18 17:50>
[2018-09-08] MEDS: Insulin NovoLOG Aspart Correctional Sugar Inj SQ SCH ×2 (11:48→19:44)
--- NOTE | 2018-09-08 12:32 | IR ---
EXAM DATE: 09/07/2018 4:48 PM EST AGE/SEX: 53 years / Male INDICATIONS: Patient with history of L1-L2 Osteomyelitis presents with severe lower back pain in nee d of a L1-L2 Disc Aspiration. CLINICAL DATA: This is the patient's initial encounter. Patient reports that signs and symptoms have been present for 1 day and indicates a pain score of 8/10. MEDICAL/SURGICAL HISTORY: Chronic obstructive pulmonary disease. Hypertension. Nephrolithiasis , Obstructive Sleep Apnea, Osteoarthritis, MRSA. Cholecystectomy. Gastric Bypass, Chest Wall Absces s, Laminectomy. COMPARISON: No prior exams available for comparison. FLUORO TIME (min): 3:27 IMAGE SERIES: 5 RADIATION DOSE: 169mGY CAK SEDATION TIME (min): 30 MEDICATION(S): 1 mg midazolam (Versed) IV 50 mcg fentanyl (Sublimaze) IV DEVICE(s): 22 gauge 10 cm Chiba needle SPECIMEN(S): Core specimen(s) obtained and submitted to laboratory for pathologic evaluation. . . PROCEDURE: 1. Fluoroscopically guided needle biopsy. 2. Conscious sedation with continuous EKG and Oximetry monitoring. The risks, benefits and alternatives to the procedure were explained and verbal and written consent w as obtained. The site was prepped in sterile fashion. Full sterile technique was used, including cap, mask, steri le gloves and gown and a large sterile sheet. Hand hygiene and 2% chlorhexidine and/or betadine/alco hol prep was utilized per protocol for cutaneous antisepsis. The skin and subcutaneous tissues were infiltrated with local anesthetic solution. With fluoroscopic guidance a 22-gauge needle was advanced in an oblique path from the left side down into the destroyed disc space at the L1-2 level. There was immediate return of approximately 5 cc of serous, blood tinged fluid. This was collected and sent to pathology for culture and sensitivity Conscious sedation was performed with the prescribed dosages and duration as above in the presence of an independent trained radiology nurse to assist in the monitoring of the patient. EKG and oximetry remained stable throughout the procedure. CONCLUSION: 1. Uncomplicated needle biopsy of the L1/L2 disc as above. Electronically signed by: Justin Woo MD Board Certified Radiologist 09/08/2018 12:30 PM EST
--- NOTE | 2018-09-08 12:37 | P.PNID ---
Subjective Remarks: Mr. Mcgraw is a 53 y/o CM with PMHx of left anterior chest wall/ clavicular abscess in March 2018. He reports he had back pain even then and the focus of care remained his clavicle. Patient underwent incision and drainage on 2017 and was prescribed an antibiotic course. He then presented to the emergency department on 06/19/2018 with severe lumbago. It appears that during his February admission for his left chest wall infection he was diagnosed with MSSA bacteremia and chest wall abscess. Again during his June admission patient had biopsy of the lumbar spine area and was found to have MSSA and therefore was discharged on ceftriaxone IV using a PICC line and was supposed to follow-up with infectious disease. It appears that during his June 2018 admission patient underwent an L1 laminectomy patient then presented to [facility] on August 05, 2018 due to persistent back pain despite treatment with IV antibiotics. An MRI of the spine was done which showed osteomyelitis discitis of L1 and L2 with peripheral phlegmon extending into the ventral epidural space. No drainable abscess identified. Laminectomy of L1 to small fluid collection in the subcutaneous soft tissues also identified but deemed as possible postsurgical versus infectious process. He also has myositis of the proximal psoas muscles based on that imaging from August 05, 2018. Patient was then transferred to [facility] for possible neurosurgery. Neurosurgery did not feel any need for surgical intervention. He had blood cultures from this admission which was positive for MSSA. He was treated with IV Ancef and discharged on this regimen as he was thought to be improving. Patient had a PICC line on discharge. Patients ex agreed to take him and complete his treatment during that admission. He followed up with Dr.Reba Mathias per my discussion with her. has been concerned about patients compliance with IV antibiotics. was informed patients was not willing to keep him in her home and there was a concern for patient being homeless. These facts need to be confirmed with and patients home health company. Perhaps a bag count for Ancef IV may help to see if he has infused the appropriate amount of bags. MRI appears improved based on response. Patient had his PICC line removed after admission, repeat blood cultures are pending. Patient also had IR guided aspiration of spine ordered by Neurosurgery. At the time of my evaluation,patient is in the [facility] under critical care service but hemodynamically stable. He is oriented x 2 for me and was able to move all 4 extremities. Overnight events reviewed No fevers No rash No diarrhea Complains of back pain but when entered room he appeared comfortable. Pain appears out of proportion to his description. Antibiotics: Ceftriaxone IV Vanco IV Flagyl IV Lines: Lines ok Past Medical History: reviewed Allergies/Adverse Reactions: Allergies No Known Allergies Allergy (Uncoded 09/06/18 23:22) none NKA Objective Vital Signs 09/07/18 13:00 09/07/18 14:00 09/07/18 14:30 Temperature Pulse Rate 82 89 Respiratory Rate 9 L 7 L 11 L Blood Pressure 124/67 120/67 Pulse Oximetry 100 93 L 09/07/18 15:28 09/07/18 15:36 09/07/18 16:00 Temperature Pulse Rate 103 H 102 H Respiratory Rate 14 14 11 L Blood Pressure 135/80 Pulse Oximetry 94 L 09/07/18 16:24 09/07/18 17:00 09/07/18 17:47 Temperature 98.5 F Pulse Rate 104 H 98 H Respiratory Rate 11 L 10 L Blood Pressure 147/85 H Pulse Oximetry 97 91 L 97 09/07/18 18:00 09/07/18 19:03 09/07/18 20:00 Temperature Pulse Rate 98 H 96 H Respiratory Rate 22 12 12 Blood Pressure 142/83 H Pulse Oximetry 98 100 09/07/18 20:22 09/07/18 22:00 09/08/18 00:30 Temperature 98.0 F Pulse Rate 86 92 H Respiratory Rate 18 Blood Pressure 140/80 Pulse Oximetry 96 98 09/08/18 04:00 09/08/18 08:00 09/08/18 09:16 Temperature 97.7 F 98.1 F Pulse Rate 97 H 88 Respiratory Rate 18 16 Blood Pressure 125/65 131/69 Pulse Oximetry 95 98 98 Intake & Output 09/07/18 09/08/18 09/08/18 18:59 06:59 18:59 Intake Total 800 / 800 2250 / 2250 250 / 250 Output Total 1150 / 1150 1500 / 1500 Balance -350 / -350 750 / 750 250 / 250 Weight 71.3 kg Intake: IV 800 / 800 1550 / 1550 250 / 250 NS Inj 1,000 ML @ 84 mls/hr IV. 1000 / 1000 CONT .[id number] MARIVEL Rx#:[id number] Vancomycin Inj 1,000 MG In NS 500 / 500 250 / 250 250 / 250 Inj 250 ML @ 250 mls/hr IV.SIG Q8H MARIVEL Rx#:[id number] Rocephin Inj 2,000 MG In NS Inj 100 / 100 100 / 100 100 ML @ 200 mls/hr IV.SIG Q12H MARIVEL Rx#:[id number] Flagyl 500 MG Inj 100 ML @ 100 200 / 200 200 / 200 mls/hr IV.SIG Q6H MARIVEL Rx#: [id number] Oral 700 / 700 Output: Urine 675 / 675 1500 / 1500 Urine Amount (Catheter) 475 / 475 Straight 475 / 475 Other: # Voids 3 1 Date of Last Bowel Movement 09/06/18 # Bowel Movements 0 09/06/18 22:20 Blood - Peripheral Aerobic Blood Culture - Preliminary No growth in 2 days 09/06/18 22:20 Blood - Peripheral Anaerobic Blood Culture - Preliminary No growth in 2 days 09/06/18 22:25 Blood - Peripheral Aerobic Blood Culture - Preliminary No growth in 2 days 09/06/18 22:25 Blood - Peripheral Anaerobic Blood Culture - Preliminary No growth in 2 days 09/07/18 16:09 Fluid - Other Gram Stain - Final 09/07/18 16:09 Fluid - Other Wound Culture - Pending 09/07/18 16:09 Fluid - Other Fungal Smear - Final 09/07/18 16:09 Fluid - Other Fungal Culture - Pending 09/07/18 16:09 Fluid - Other Acid Fast Bacilli Smear - Pending 09/07/18 16:09 Fluid - Other Mycobacterial Culture - Pending Lab - Hematology Results 09/07/18 09/07/18 09/07/18 02:46 02:46 10:54 WBC 6.6 RBC 3.73 L Hgb 10.6 L Hct 32.1 L MCV 85.9 MCH 28.5 MCHC 33.2 RDW 18.5 H Plt Count 292 MPV 7.0 Neut % (Auto) 59.5 Lymph % (Auto) 30.6 [place] % (Auto) 6.7 Eos % (Auto) 2.8 Baso % (Auto) 0.4 Neut # (Auto) 3.9 Lymph # (Auto) 2.0 [place] # (Auto) 0.4 Eos # (Auto) 0.2 Baso # (Auto) 0.0 WBC Differential . Differential Comment Auto diff final ESR 30 H 36 H Lab - Chemistry Results 09/06/18 09/06/18 09/06/18 22:25 22:25 23:41 Sodium Potassium Chloride Carbon Dioxide Anion Gap BUN Creatinine Estimated GFR POC Glucose 127 H Random Glucose Calcium Phosphorus Magnesium Total Bilirubin AST ALT Alkaline Phosphatase Total Creatine Kinase 34 L C-Reactive Protein 0.92 H Total Protein Albumin 09/07/18 09/07/18 09/07/18 02:46 06:45 10:54 Sodium 141 Potassium 3.8 Chloride 111 H Carbon Dioxide 24.5 Anion Gap 6 BUN 9 Creatinine 0.42 L Estimated GFR Greater than 89 POC Glucose 80 Random Glucose 98 Calcium 8.2 L Phosphorus 3.1 Magnesium 1.7 Total Bilirubin 0.2 AST 18 ALT 16 Alkaline Phosphatase 127 H Total Creatine Kinase C-Reactive Protein 1.59 H Total Protein 7.6 D Albumin 3.1 L 09/07/18 09/07/18 09/08/18 12:20 17:47 06:07 Sodium Potassium Chloride Carbon Dioxide Anion Gap BUN Creatinine 0.39 L Estimated GFR Greater than 89 POC Glucose 116 H 93 Random Glucose Calcium Phosphorus Magnesium Total Bilirubin AST ALT Alkaline Phosphatase Total Creatine Kinase C-Reactive Protein Total Protein Albumin 09/08/18 11:31 Sodium Potassium Chloride Carbon Dioxide Anion Gap BUN Creatinine Estimated GFR POC Glucose 111 H Random Glucose Calcium Phosphorus Magnesium Total Bilirubin AST ALT Alkaline Phosphatase Total Creatine Kinase C-Reactive Protein Total Protein Albumin Imaging: ITS Impressions Needle Biopsy/Aspiration X-Ray 09/07/18 00:00 CONCLUSION: 1. Uncomplicated needle biopsy of the L1/L2 disc as above. Lumbar Spine MRI 09/07/18 08:51 CONCLUSION: 1. Findings consistent with discitis and osteomyelitis at L1-2 with prominent compression deformity of the L2 superior endplate and retropulsion of the posterior L2 cortex resulting in central canal narrowing to about 8 mm. There is a cleft of fluid signal corresponding to the disc space. Consider atypical infection. 2. Focal signal abnormality and abnormal enhancement involving the right anterior inferior endplate of T12 concerning for second focus of osteomyelitis. 3. No evidence for epidural abscess. 4. Minimal ill-defined prevertebral phlegmonous changes without focal drainable fluid collection. 5. Subcutaneous 2.5 x 3.0 x 2.4 cm abscess in the posterior soft tissues at the T12-L1 level. Physical Exam: GENERAL: Well-nourished well-developed, not in acute distress SKIN: Cool and dry, no generalized rash HEAD: Atraumatic. Normocephalic. No temporal or scalp tenderness. EYES: Pupils equal round and reactive. Scleral icterus. No injection or drainage. No petechia ENT: Nothing abnormal detected NECK: Trachea midline. Supple, nontender, no meningeal signs. CARDIOVASCULAR: HS audible. RESPIRATORY: Clear to auscultation bilaterally. GASTROINTESTINAL: Abdomen soft nontender. MUSCULOSKELETAL: Extremities without clubbing, cyanosis. NEUROLOGICAL: Alert oriented 3. Nonfocal. Psych cooperative IV line sites ok. Assessment and Plan - Plan Infective Discitis (CRP improved from 21 first admission to 0.95 this admission) h/o MSSA bacteremia Hypogammaglobulinemia. h/o MRSA infection Clavicular abscess COPD by history Recs Discontinue Ceftriaxone IV Discontinue Flagyl IV for now Start Ancef IV Continue Vanco IV (target 15-20 for discitis) Will check Immunoglobulins if low IgM may need IV IgG infusion by Hemon[facility] ( last admission) Follow cultures to adjust antibiotics. Follow clinical course. tala Luke [employer]: Call needs to be placed to [facility] to check on compliance. Patient reports he has been living with his . He reports following up with Dr.Reba Mathias.
--- NOTE | 2018-09-08 13:22 | P.PNIM ---
Subjective Interval history: Follow up for L1/L2, osteomyelitis and MSSA: Patient seen and examined, no fever overnight, no chills. Complains of lumbar pain, radiates to left upper thigh, no numbness, no tingling. Having some difficulty with sitting up and getting out of bed, at this time working with physical therapy. No fever overnight, no chills. No nausea, no vomiting. Endorses that he has been compliant with IV antibiotics. Asking when he is going home. He is currently staying with his ex- and she will be assisting with his care. Physical Exam Vital signs: Vital Signs 09/07/18 14:00 09/07/18 14:30 09/07/18 15:28 Temperature Pulse Rate 89 103 H Respiratory Rate 7 L 11 L 14 Blood Pressure 120/67 Pulse Oximetry 93 L 09/07/18 15:36 09/07/18 16:00 09/07/18 16:24 Temperature Pulse Rate 102 H Respiratory Rate 14 11 L Blood Pressure 135/80 Pulse Oximetry 94 L 97 09/07/18 17:00 09/07/18 17:47 09/07/18 18:00 Temperature 98.5 F Pulse Rate 104 H 98 H 98 H Respiratory Rate 11 L 10 L 22 Blood Pressure 147/85 H 142/83 H Pulse Oximetry 91 L 97 98 09/07/18 19:03 09/07/18 20:00 09/07/18 20:22 Temperature Pulse Rate 96 H Respiratory Rate 12 12 Blood Pressure Pulse Oximetry 100 96 09/07/18 22:00 09/08/18 00:30 09/08/18 04:00 Temperature 98.0 F 97.7 F Pulse Rate 86 92 H 97 H Respiratory Rate 18 18 Blood Pressure 140/80 125/65 Pulse Oximetry 98 95 09/08/18 08:00 09/08/18 09:16 Temperature 98.1 F Pulse Rate 88 Respiratory Rate 16 Blood Pressure 131/69 Pulse Oximetry 98 98 Intake & Output 09/07/18 09/08/18 09/08/18 18:59 06:59 18:59 Intake Total 800 / 800 2250 / 2250 250 / 250 Output Total 1150 / 1150 1500 / 1500 Balance -350 / -350 750 / 750 250 / 250 Weight 71.3 kg Intake: IV 800 / 800 1550 / 1550 250 / 250 NS Inj 1,000 ML @ 84 mls/hr IV. 1000 / 1000 CONT .[id number] [facility] Rx#:[id number] Vancomycin Inj 1,000 MG In NS 500 / 500 250 / 250 250 / 250 Inj 250 ML @ 250 mls/hr IV.SIG Q8H [facility]EL Rx#:[id number] Rocephin Inj 2,000 MG In NS Inj 100 / 100 100 / 100 100 ML @ 200 mls/hr IV.SIG Q12H [facility]EL Rx#:[id number] Flagyl 500 MG Inj 100 ML @ 100 200 / 200 200 / 200 mls/hr IV.SIG Q6H [facility]EL Rx#: [id number] Oral 700 / 700 Output: Urine 675 / 675 1500 / 1500 Urine Amount (Catheter) 475 / 475 Straight 475 / 475 Other: # Voids 3 1 Date of Last Bowel Movement 09/06/18 # Bowel Movements 0 Narrative: GENERAL: 53-year-old well-developed well-nourished male. SKIN: Warm and dry. HEAD: Atraumatic. Normocephalic. EYES: Pupils equal and round. No scleral icterus. No injection or drainage. ENT: No nasal bleeding or discharge. Mucous membranes pink and moist. NECK: Trachea midline. No JVD. CARDIOVASCULAR: Regular rate and rhythm. RESPIRATORY: No accessory muscle use. Clear to auscultation. Breath sounds equal bilaterally. GASTROINTESTINAL: Abdomen soft, non-tender, nondistended. Hepatic and splenic margins not palpable. MUSCULOSKELETAL: Extremities without clubbing, cyanosis, or edema. No obvious deformities. Lumbar spine with incision, no exudate. Diffuse erythema with blanching of the skin area distal to incision. NEUROLOGICAL: Awake and alert. No obvious cranial nerve deficits. Motor grossly within normal limits. Five out of 5 muscle strength in the arms and 4 out of 5 legs. Normal speech. PSYCHIATRIC: Appropriate mood and affect; insight and judgment normal. Urinary Catheter Management Straight: Cath placed during this visit: yes Reason for continuing: Not indwelling catheter Insertion date: 09/07/18 Insertion time: 17:30 Results Labs CBC & Chem 7: 09/07/18 02:46 09/08/18 06:07 Labs: Microbiology 09/06/18 22:20 Blood - Peripheral Aerobic Blood Culture - Preliminary No growth in 2 days 09/06/18 22:20 Blood - Peripheral Anaerobic Blood Culture - Preliminary No growth in 2 days 09/06/18 22:25 Blood - Peripheral Aerobic Blood Culture - Preliminary No growth in 2 days 09/06/18 22:25 Blood - Peripheral Anaerobic Blood Culture - Preliminary No growth in 2 days 09/07/18 16:09 Fluid - Other Gram Stain - Final 09/07/18 16:09 Fluid - Other Fungal Smear - Final Imaging Imaging: Impressions Needle Biopsy/Aspiration X-Ray 09/07/18 00:00 CONCLUSION: 1. Uncomplicated needle biopsy of the L1/L2 disc as above. Lumbar Spine MRI 09/07/18 08:51 CONCLUSION: 1. Findings consistent with discitis and osteomyelitis at L1-2 with prominent compression deformity of the L2 superior endplate and retropulsion of the posterior L2 cortex resulting in central canal narrowing to about 8 mm. There is a cleft of fluid signal corresponding to the disc space. Consider atypical infection. 2. Focal signal abnormality and abnormal enhancement involving the right anterior inferior endplate of T12 concerning for second focus of osteomyelitis. 3. No evidence for epidural abscess. 4. Minimal ill-defined prevertebral phlegmonous changes without focal drainable fluid collection. 5. Subcutaneous 2.5 x 3.0 x 2.4 cm abscess in the posterior soft tissues at the T12-L1 level. Assessment and Plan Plan 53-year-old male with PMHx of L1/L2 osteomyelitis/MSSA 2017 was receiving Cefazolin via PICC line to the right upper extremity. Also history of hypertension, osteoporosis, COPD, nephrolithiasis and obstructive sleep apnea. Known history of cholelithiasis. Presented to the ED emergency department at [facility] in [place] with increasing low back pain. He is currently taking acetaminophen for pain relief. Patient was transferred to [facility] for possible neurosurgery. Pt. accepted by Dr. Melendez and admitted to [facility] services. MRI of the lumbar spine revealed interval progression of discitis at L1/L2 with minimal progression of vertebral body height loss at L2. Retropulsion of the posterior- superior cortex associated disc bulging central disc protrusion causing moderate spinal canal stenosis. T12 osteomyelitis. Unchanged phlegmon with adjacent psoas musculature and bilateral L2/3 neuroforaminal surrounding is in the L2/4. Patient has been hemodynamically stable, was transferred to hospitalist services. Chronic L1/2 osteomyelitis, + MSSA Hx of MSSA bacteremia, hx of clavicular abscess Noncompliance with antibiotic treatment Lumbar spine MRI, findings consistent with discitis osteomyelitis at L1-L2 with prominent compression deformity of L2, cleft of fluid signal corresponding to the disc space, focal signal abnormality and abnormal enhancement involving the right anterior inferior endplate of T12 concerning for second focus of ostium mellitus, no epidural abscess, minimal ill-defined prevertebral phlegmonous changes without focal drainable fluid collection, subcutaneous 2.5 x 3 x 2.4 cm abscess in the posterior soft tissue at T12-L1 level -Status post CT-guided biopsy 09/07, continue to follow culture -Appreciate ID input, discussed with Dr. Capellan-discontinue ceftriaxone and Flagyl, recommends to continue Vanco, restarted Ancef -CRP trended down since last admission -Neurosurgery has evaluated, recommends to continue antibiotics, no neurosurgical intervention is required. Recommend TLSO brace when out of bed -Continue with present pain management Continue with physical therapy Hx of Low IgM -In July was evaluated by Dr. Ram, immunodeficiency workup done. Status post IVIG infusion 08/09/2018. At that time, he heme believed the patient did not have primary immunodeficiency and this was likely reactive -Dr. Capellan recommends checking immunoglobulins and if low may need IVIG infusion and reevaluation by Dr. Ram, will follow up on levels. Noncompliance with tx -d/w CM, per [facility], pt. non compliant with treatment. Unclear how many abx doses he missed. Essential hypertension -Continue metoprolol tartrate 50 mg twice daily and lisinopril 10 mg twice daily History of COPD Obstructive sleep apnea -Duonebs PRN -stable, continue to monitor GI Prophylaxis-pantoprazole DVT prophyalaxis -SCD/heparin subcu CM following, will assist with [facility] Code Status: Full code Discussed Condition With: RN, pt, CM Dr. Saleh Discharge Planning: [facility], will be transferred back to [place] when IGG labs back Progress Note: Quality VTE Deep Vein Thrombosis/Pulmonary Embolism Present on Admission: No
[2018-09-08 15:52] LABS: Immunoglobulin A 359 mg/dL (93-514); Immunoglobulin G 1630 mg/dL (660-1640); Immunoglobulin M 22 mg/dL (40-247)
[2018-09-08] MEDS: Sod Chloride 0.9% Inj 1,000 ML IV.CONT SCH ×2 (16:16→21:03)
[2018-09-08] MEDS: ceFAZolin 2 GM Premix Inj 2 GM/50 ML PIGGYBACK IV.SIG SCH ×2 (16:19→21:03)
[2018-09-09] MEDS: HYDROmorphone PF Inj 2 MG/ML Vial IV.PUSH PRN ×6 (01:16→22:37)
[2018-09-09] MEDS: Vancomycin Inj 1,000 MG in Sodium Chlor 0.9% Inj 250 ML IV.SIG SCH ×2 (01:16→09:00)
[2018-09-09] MEDS: Chlorhexidine Gluconate 2% 1 Pack (2 Cloths) TOPICAL SCH (04:33)
[2018-09-09] MEDS: ceFAZolin 2 GM Premix Inj 2 GM/50 ML PIGGYBACK IV.SIG SCH ×3 (05:51→21:24)
[2018-09-09] MEDS ORDERED: Pharmacy Ordered Lab Info OTHER ONE (07:45)
[2018-09-09] MEDS ORDERED: Acetaminophen 325 MG Tablet PO SCH (09:00)
[2018-09-09] MEDS ORDERED: Sodium Chlor 0.9% Inj 500 ML IV.SIG SCH (09:00)
[2018-09-09] MEDS ORDERED: IVIG (Immune Globulin) Inj 30 GM in Syringe/Bag 1 EACH IV.SIG SCH ×2 (10:00→12:00)
--- NOTE | 2018-09-09 10:06 | MB ---
cc: Tim Rma MD DATE: 09/09/2018 CONSULTING PHYSICIAN: Anyi Capellan MD REASON FOR CONSULTATION: Hematology consult to render opinion regarding patient with low IgM level with recurrent osteomyelitis. HISTORY OF PRESENT ILLNESS: The patient is a 53-year-old male with history of recurrent Staph aureus osteomyelitis, presented to the hospital again with increased back pain. He started having chest wall abscess and back pain around 02/2018. The abscess was drained in March. In June, he started having increased back pain and found to have osteomyelitis. He has been treated with antibiotic. He was transferred to [facility] in July for neurosurgical evaluation for the recurrent osteomyelitis. However, no surgical intervention was recommended. During the hospital stay, he was found to have low IgM level of 22. He was given 1 dose of IVIG on 08/09/2018 and tolerated that very well. He subsequently discharged home with [facility]. Now, there was some question whether he was compliant with the administration of antibiotics. As stated, his pain gradually increased and he came back to the hospital. He denies any documented fever. He has no chill. His pain is mostly in lower back and radiates to the chest sometime. He has had nausea and threw up occasionally. He denies any chest pressure. He has no shortness of breath or cough. He denies abdominal pain. He has no change in bowel habit or urinary habit. PAST MEDICAL HISTORY: 1. Low IgM level. 2. Left anterior chest wall abscess. 3. Recurrent lumbar osteomyelitis. 4. MSSA bacteremia. 5. Hypertension. 6. Remote history of pneumonia. PAST SURGICAL HISTORY: 1. Incision and drainage of chest wall abscess. 2. L1 laminectomy. 3. Gastric bypass surgery in 2008. FAMILY HISTORY: One sister of cancer. He has 2 daughters and 1 son who are all healthy. SOCIAL HISTORY: Smoked a pack a day for 30 years. He drinks 2 to 3 times a week, but not recently. 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 ALLERGIES: NO KNOWN DRUG ALLERGIES. CURRENT MEDICATIONS: 1. Ancef. 2. Ferrous sulfate. 3. Gabapentin. 4. Heparin. 5. Prinivil. 6. Lopressor. 7. Protonix. 8. Antonieta-Colace. 9. Zanaflex. 10. Vancomycin. REVIEW OF SYSTEMS: CONSTITUTIONAL: As above. EYES: Negative. ENT: Negative. CARDIOVASCULAR: Negative. RESPIRATORY: Negative. GASTROINTESTINAL: As above. GENITOURINARY: As above. MUSCULOSKELETAL: As above. HEMATOLOGIC: As above. ENDOCRINE: Negative. DERMATOLOGY: Negative. PSYCHIATRIC: Negative. NEUROLOGIC: Negative. PHYSICAL EXAMINATION: VITAL SIGNS: Temperature 98.2, blood pressure 127/70, O2 saturation 98% on room air. GENERAL: He is alert, oriented x3, no acute distress. Does complain of low back pain. HEENT: Atraumatic, normocephalic. Pupils are equal, round, reactive to light. Extraocular muscles intact. No scleral icterus. Oropharynx, dry mucosa. No lesion. NECK: No thyromegaly. No palpable mass. LYMPHATIC: No palpable cervical, clavicular, axillary, or inguinal lymph nodes. CARDIOVASCULAR: Regular S1, S2. No murmur. LUNGS: Clear to auscultation anteriorly. ABDOMEN: Soft, nontender. I could not palpate liver or spleen. EXTREMITIES: No cyanosis, clubbing or edema. SKIN: No rash or petechiae. The right arm PICC line site, no erythema. NEUROLOGIC: Nonfocal. LABORATORY DATA: I reviewed his lab work drawn during this hospital stay. IgM was 22 with ESR 36. ASSESSMENT AND PLAN: 1. Low IgM level with elevated IgG and normal IgA. IgE was also elevated previously. He had a remote history of pneumonia when he was obese, weighing 450 pounds at that time. Since the gastric bypass surgery and losing the weight, he has no recurrent infection until he developed the left chest wall abscess last February. 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 He now represented with increased back pain, likely due to the osteomyelitis. There is some question if he is compliant with the administration of antibiotics. In anyway, a repeat IgM level is still low at 22. Previous flow cytometry showed a low amount of T granular lymphocytosis of about 5%. T-cell rearrangement studies showed a positive T-cell beta receptor rearrangement, but negative for gamma receptor rearrangement. This is of unclear clinical significance. He had good response to pneumococcal vaccination, but lack of response to diphtheria toxin. I doubt that he has a selective IgM deficiency, which is a very rare condition. However, given his history of persistent osteomyelitis, we will give him another dose of IVIG infusion to hopefully hasten his recovery. The patient tolerated previous IVIG very well. 2. Hypertension. 3. History of obesity, status post gastric bypass surgery. PLAN: 1. We will arrange for another IVIG infusion. 2. Continue antibiotic per infectious disease. 3. Monitor lab work. Thank you, Dr. Capellan, for asking me to see this patient. MD CEFERINO Barakat/cathleen , 07:36 AM , 07:52 AM [email or web address]
[2018-09-09] MEDS: Gabapentin 300 MG Capsule PO SCH ×4 (11:16→18:17)
[2018-09-09] MEDS: Ferrous Sulfate 325 MG Tablet PO SCH ×2 (11:16→11:30)
[2018-09-09] MEDS: Senna/Docusate Sodium 8.6/50 MG Tablet PO SCH ×4 (11:16→21:22)
[2018-09-09] MEDS: Metoprolol Tartrate 50 MG Tablet PO SCH ×3 (11:16→21:23)
[2018-09-09] MEDS: Sod Chloride 0.9% Inj 1,000 ML IV.CONT SCH (11:16)
[2018-09-09] MEDS: Lisinopril 10 MG Tablet PO SCH ×3 (11:16→21:22)
[2018-09-09] MEDS: Mupirocin 2% Nasal Oint Topical Syringe EACH NARE SCH ×3 (11:16→21:24)
--- NOTE | 2018-09-09 11:35 | P.PNIM ---
Subjective Interval history: Follow up for L1/L2, osteomyelitis and MSSA: Patient seen and examined, continues with low back pain but able to mobilize in bed a little bit better. No fever, no chills. No nausea, vomiting, has good appetite. No acute changes overnight. Physical Exam Vital signs: Vital Signs 09/08/18 12:00 09/08/18 17:54 09/08/18 20:00 Temperature 98.0 F 97.9 F 97.5 F L Pulse Rate 76 80 88 Respiratory Rate 18 16 19 Blood Pressure 125/71 110/65 154/77 H Pulse Oximetry 97 97 09/09/18 00:00 09/09/18 02:27 09/09/18 04:00 Temperature 98.2 F 98.2 F Pulse Rate 76 79 75 Respiratory Rate 19 19 Blood Pressure 91/59 L 127/70 Pulse Oximetry 92 L 98 09/09/18 08:00 Temperature 98.1 F Pulse Rate 78 Respiratory Rate 18 Blood Pressure 128/65 Pulse Oximetry 97 Intake & Output 09/08/18 09/09/18 09/09/18 18:59 06:59 18:59 Intake Total 2460 / 2460 2300 / 2300 1250 / 1250 Output Total 850 / 850 1800 / 1800 Balance 1610 / 1610 500 / 500 1250 / 1250 Weight 71.3 kg Intake: IV 1500 / 1500 1400 / 1400 1250 / 1250 NS Inj 1,000 ML @ 84 mls/hr IV. 1000 / 1000 800 / 800 1000 / 1000 CONT .[id number] [facility] Rx#:[id number] Vancomycin Inj 1,000 MG In NS 500 / 500 250 / 250 250 / 250 Inj 250 ML @ 250 mls/hr IV.SIG Q8H [facility]EL Rx#:[id number] Ancef 2 GM Premix Inj 2 gm In 150 / 150 50 ml @ 200 mls/hr IV.SIG Q8H [facility] Rx#:[id number] Rocephin Inj 2,000 MG In NS Inj 100 / 100 100 ML @ 200 mls/hr IV.SIG Q12H MAR[facility]EL Rx#:[id number] Flagyl 500 MG Inj 100 ML @ 100 100 / 100 mls/hr IV.SIG Q6H MARIVEL Rx#: [id number] Oral 960 / 960 900 / 900 Output: Urine 850 / 850 1800 / 1800 Other: Date of Last Bowel Movement 09/06/18 # Bowel Movements 1 Narrative: GENERAL: 53-year-old well-developed well-nourished male. SKIN: Warm and dry. HEAD: Atraumatic. Normocephalic. EYES: Pupils equal and round. No scleral icterus. No injection or drainage. ENT: No nasal bleeding or discharge. Mucous membranes pink and moist. NECK: Trachea midline. No JVD. CARDIOVASCULAR: Regular rate and rhythm. RESPIRATORY: No accessory muscle use. Clear to auscultation. Breath sounds equal bilaterally. GASTROINTESTINAL: Abdomen soft, non-tender, nondistended. Hepatic and splenic margins not palpable. MUSCULOSKELETAL: Extremities without clubbing, cyanosis, or edema. No obvious deformities. Lumbar spine with incision, no exudate. Diffuse erythema with blanching of the skin area distal to incision. NEUROLOGICAL: Awake and alert. No obvious cranial nerve deficits. Motor grossly within normal limits. Five out of 5 muscle strength in the arms and 4 out of 5 legs. Normal speech. PSYCHIATRIC: Appropriate mood and affect; insight and judgment normal. Urinary Catheter Management Straight: Cath placed during this visit: yes Reason for continuing: Not indwelling catheter Insertion date: 09/07/18 Insertion time: 17:30 Results Labs CBC & Chem 7: 09/07/18 02:46 09/08/18 06:07 Labs: Microbiology 09/06/18 22:20 Blood - Peripheral Aerobic Blood Culture - Preliminary No growth in 3 days 09/06/18 22:20 Blood - Peripheral Anaerobic Blood Culture - Preliminary No growth in 3 days 09/06/18 22:25 Blood - Peripheral Aerobic Blood Culture - Preliminary No growth in 3 days 09/06/18 22:25 Blood - Peripheral Anaerobic Blood Culture - Preliminary No growth in 3 days 09/07/18 16:09 Fluid - Other Gram Stain - Final 09/07/18 16:09 Fluid - Other Wound Culture - Preliminary No growth in 24 hours 09/07/18 16:09 Fluid - Other Fungal Smear - Final Imaging Imaging: Impressions Needle Biopsy/Aspiration X-Ray 09/07/18 00:00 CONCLUSION: 1. Uncomplicated needle biopsy of the L1/L2 disc as above. Assessment and Plan Plan 53-year-old male with PMHx of L1/L2 osteomyelitis/MSSA 2017 was receiving Cefazolin via PICC line to the right upper extremity. Also history of hypertension, osteoporosis, COPD, nephrolithiasis and obstructive sleep apnea. Known history of cholelithiasis. Presented to the ED emergency department at [facility] in [place] with increasing low back pain. He is currently taking acetaminophen for pain relief. Patient was transferred to [facility] for possible neurosurgery. Pt. accepted by Dr. Melendez and admitted to [facility] services. MRI of the lumbar spine revealed interval progression of discitis at L1/L2 with minimal progression of vertebral body height loss at L2. Retropulsion of the posterior- superior cortex associated disc bulging central disc protrusion causing moderate spinal canal stenosis. T12 osteomyelitis. Unchanged phlegmon with adjacent psoas musculature and bilateral L2/3 neuroforaminal surrounding is in the L2/4. Patient has been hemodynamically stable, was transferred to hospitalist services. Chronic L1/2 osteomyelitis, + MSSA Hx of MSSA bacteremia, hx of clavicular abscess Noncompliance with antibiotic treatment Lumbar spine MRI, findings consistent with discitis osteomyelitis at L1-L2 with prominent compression deformity of L2, cleft of fluid signal corresponding to the disc space, focal signal abnormality and abnormal enhancement involving the right anterior inferior endplate of T12 concerning for second focus of ostium mellitus, no epidural abscess, minimal ill-defined prevertebral phlegmonous changes without focal drainable fluid collection, subcutaneous 2.5 x 3 x 2.4 cm abscess in the posterior soft tissue at T12-L1 level -Status post CT-guided biopsy 09/07, continue to follow culture -Appreciate ID input, discussed with Dr. Capellan-discontinued ceftriaxone and Flagyl, recommends to continue Vanco, restarted Ancef 2 GM q 8 -CRP trended down since last admission -Neurosurgery has evaluated, recommends to continue antibiotics, no neurosurgical intervention is required. Recommend TLSO brace when out of bed -Continue with present pain management Continue with physical therapy -Cultures remain negative so far, discussed with ID, when cultures finalized recommendations will be provided. Hx of Low IgM -In July was evaluated by Dr. Ram, immunodeficiency workup done. Status post IVIG infusion 08/09/2018. At that time, heme believed the patient did not have primary immunodeficiency and this was likely reactive -Dr. Capellan recommends checking immunoglobulins and if low may need IVIG infusion and reevaluation by Dr. Ram, will follow up on levels. -IgM 22, IgE 435, IgG 1630, IgA 359. Dr. Ram consulted, input appreciated. Pt. to receive IVIG today Questionable Noncompliance with tx -d/w CM, per [facility], pt. non compliant with treatment. Unclear how many abx doses he missed. -pt. adamantly denies missing meds, confirmed with ex- as he has been staying with her. Essential hypertension -Continue metoprolol tartrate 50 mg twice daily and lisinopril 10 mg twice daily History of COPD Obstructive sleep apnea -Duonebs PRN -stable, continue to monitor GI Prophylaxis-pantoprazole DVT prophyalaxis -SCD/heparin subcu CM following, will assist with [facility] Code Status: Full code Discussed Condition With: RN, pt, CM Dr. Delfino Capellan Discharge Planning: waiting for final cultures, will go home with [facility], CM working with [facility] to coordinate abx Progress Note: Quality VTE Deep Vein Thrombosis/Pulmonary Embolism Present on Admission: No
--- NOTE | 2018-09-09 11:39 | P.PNID ---
Subjective Remarks: Mr. Mcgraw is a 53 y/o CM with PMHx of left anterior chest wall/ clavicular abscess in March 2018. He reports he had back pain even then and the focus of care remained his clavicle. Patient underwent incision and drainage on 2017 and was prescribed an antibiotic course. He then presented to the emergency department on 06/19/2018 with severe lumbago. It appears that during his February admission for his left chest wall infection he was diagnosed with MSSA bacteremia and chest wall abscess. Again during his June admission patient had biopsy of the lumbar spine area and was found to have MSSA and therefore was discharged on ceftriaxone IV using a PICC line and was supposed to follow-up with infectious disease. It appears that during his June 2018 admission patient underwent an L1 laminectomy patient [facility] due to persistent back pain despite treatment with IV antibiotics. An MRI of the spine was done which showed osteomyelitis discitis of L1 and L2 with peripheral phlegmon extending into the ventral epidural space. No drainable abscess identified. Laminectomy of L1 to small fluid collection in the subcutaneous soft tissues also identified but deemed as possible postsurgical versus infectious process. He also has myositis of the proximal psoas muscles based on that imaging from August 05, 2018. Patient was then transferred to [facility] for possible neurosurgery. Neurosurgery did not feel any need for surgical intervention. He had blood cultures from this admission which was positive for MSSA. He was treated with IV Ancef and discharged on this regimen as he was thought to be improving. Patient had a PICC line on discharge. Patients ex agreed to take him and complete his treatment during that admission. He followed up with Dr.Reba Mathias per my discussion with her. has been concerned about patients compliance with IV antibiotics. was informed patients was not willing to keep him in her home and there was a concern for patient being homeless. These facts need to be confirmed with and patients home health company. Perhaps a bag count for Ancef IV may help to see if he has infused the appropriate amount of bags. MRI appears improved based on response. Patient had his PICC line removed after admission, repeat blood cultures are pending. Patient also had IR guided aspiration of spine ordered by Neurosurgery. At the time of my evaluation,patient is in the [facility] under critical care service but hemodynamically stable. He is oriented x 2 for me and was able to move all 4 extremities. Overnight events reviewed No fevers No rash No diarrhea Complained of back pain but was able to sit up Antibiotics: Ceftriaxone IV Vanco IV Lines: Lines ok Past Medical History: reviewed Allergies/Adverse Reactions: Allergies No Known Allergies Allergy (Uncoded 09/06/18 23:22) none NKA Objective Vital Signs 09/08/18 12:00 09/08/18 17:54 09/08/18 20:00 Temperature 98.0 F 97.9 F 97.5 F L Pulse Rate 76 80 88 Respiratory Rate 18 16 19 Blood Pressure 125/71 110/65 154/77 H Pulse Oximetry 97 97 09/09/18 00:00 09/09/18 02:27 09/09/18 04:00 Temperature 98.2 F 98.2 F Pulse Rate 76 79 75 Respiratory Rate 19 19 Blood Pressure 91/59 L 127/70 Pulse Oximetry 92 L 98 09/09/18 08:00 Temperature 98.1 F Pulse Rate 78 Respiratory Rate 18 Blood Pressure 128/65 Pulse Oximetry 97 Intake & Output 09/08/18 09/09/18 09/09/18 18:59 06:59 18:59 Intake Total 2460 / 2460 2300 / 2300 1250 / 1250 Output Total 850 / 850 1800 / 1800 Balance 1610 / 1610 500 / 500 1250 / 1250 Weight 71.3 kg Intake: IV 1500 / 1500 1400 / 1400 1250 / 1250 NS Inj 1,000 ML @ 84 mls/hr IV. 1000 / 1000 800 / 800 1000 / 1000 CONT .[id number] [facility] Rx#:[id number] Vancomycin Inj 1,000 MG In NS 500 / 500 250 / 250 250 / 250 Inj 250 ML @ 250 mls/hr IV.SIG Q8H [facility]EL Rx#:[id number] Ancef 2 GM Premix Inj 2 gm In 150 / 150 50 ml @ 200 mls/hr IV.SIG Q8H MARIVEL Rx#:[id number] Rocephin Inj 2,000 MG In NS Inj 100 / 100 100 ML @ 200 mls/hr IV.SIG Q12H MARIVEL Rx#:[id number] Flagyl 500 MG Inj 100 ML @ 100 100 / 100 mls/hr IV.SIG Q6H MARIVEL Rx#: [id number] Oral 960 / 960 900 / 900 Output: Urine 850 / 850 1800 / 1800 Other: Date of Last Bowel Movement 09/06/18 # Bowel Movements 1 09/06/18 22:20 Blood - Peripheral Aerobic Blood Culture - Preliminary No growth in 3 days 09/06/18 22:20 Blood - Peripheral Anaerobic Blood Culture - Preliminary No growth in 3 days 09/06/18 22:25 Blood - Peripheral Aerobic Blood Culture - Preliminary No growth in 3 days 09/06/18 22:25 Blood - Peripheral Anaerobic Blood Culture - Preliminary No growth in 3 days 09/07/18 16:09 Fluid - Other Gram Stain - Final 09/07/18 16:09 Fluid - Other Wound Culture - Preliminary No growth in 24 hours 09/07/18 16:09 Fluid - Other Fungal Smear - Final 09/07/18 16:09 Fluid - Other Fungal Culture - Pending 09/07/18 16:09 Fluid - Other Acid Fast Bacilli Smear - Pending 09/07/18 16:09 Fluid - Other Mycobacterial Culture - Pending Lab - Hematology Results 09/07/18 10:54 ESR 36 H Lab - Chemistry Results 09/07/18 09/07/18 09/07/18 10:54 12:20 17:47 Creatinine Estimated GFR POC Glucose 116 H 93 C-Reactive Protein 1.59 H 09/08/18 09/08/18 06:07 11:31 Creatinine 0.39 L Estimated GFR Greater than 89 POC Glucose 111 H C-Reactive Protein Imaging: ITS Impressions Needle Biopsy/Aspiration X-Ray 09/07/18 00:00 CONCLUSION: 1. Uncomplicated needle biopsy of the L1/L2 disc as above. Lumbar Spine MRI 09/07/18 08:51 CONCLUSION: 1. Findings consistent with discitis and osteomyelitis at L1-2 with prominent compression deformity of the L2 superior endplate and retropulsion of the posterior L2 cortex resulting in central canal narrowing to about 8 mm. There is a cleft of fluid signal corresponding to the disc space. Consider atypical infection. 2. Focal signal abnormality and abnormal enhancement involving the right anterior inferior endplate of T12 concerning for second focus of osteomyelitis. 3. No evidence for epidural abscess. 4. Minimal ill-defined prevertebral phlegmonous changes without focal drainable fluid collection. 5. Subcutaneous 2.5 x 3.0 x 2.4 cm abscess in the posterior soft tissues at the T12-L1 level. Physical Exam: GENERAL: Well-nourished well-developed, not in acute distress SKIN: Cool and dry, no generalized rash HEAD: Atraumatic. Normocephalic. No temporal or scalp tenderness. EYES: Pupils equal round and reactive. Scleral icterus. No injection or drainage. No petechia ENT: Nothing abnormal detected NECK: Trachea midline. Supple, nontender, no meningeal signs. CARDIOVASCULAR: HS audible. RESPIRATORY: Clear to auscultation bilaterally. GASTROINTESTINAL: Abdomen soft nontender. MUSCULOSKELETAL: Extremities without clubbing, cyanosis. NEUROLOGICAL: Alert oriented 3. Nonfocal. Psych cooperative IV line sites ok. Assessment and Plan - Plan Infective Discitis (CRP improved from 21 first admission to 0.95 this admission) h/o MSSA bacteremia Hypogammaglobulinemia. h/o MRSA infection Clavicular abscess COPD by history Recs Continue Ancef IV Patient undergoing IVIgG which will take all day infusions. Will give him one dose of Keflex in the interim. Discontinue Vanco IV (target 15-20 for discitis) Follow clinical course. tala Luke [employer]: Pending Cultures. Patient already has PICC. Receiving Immune globulin infusion today. Patient reports he has been living with his . He reports following up with Dr.Reba Mathias.
[2018-09-09 16:53] LABS: Glomerular Filtration Rate Greater Than 89 mL/min (>89)
[2018-09-10] MEDS: HYDROmorphone PF Inj 2 MG/ML Vial IV.PUSH PRN ×4 (03:36→21:08)
[2018-09-10] MEDS: Chlorhexidine Gluconate 2% 1 Pack (2 Cloths) TOPICAL SCH (04:02)
[2018-09-10] MEDS: ceFAZolin 2 GM Premix Inj 2 GM/50 ML PIGGYBACK IV.SIG SCH ×3 (05:57→21:08)
--- NOTE | 2018-09-10 07:38 | P.PNONC ---
Subjective Interval history: Patient tolerated IVIG well. He has no side effect. His back pain is controlled. He remains afebrile. He has no chest pain or shortness of breath. Objective Vital Signs/Intake & Output: Vital Signs 09/09/18 08:00 09/09/18 12:15 09/09/18 12:25 Temperature 98.1 F Pulse Rate 79 65 68 Respiratory Rate 18 18 16 Blood Pressure 128/65 94/55 L 100/56 L Pulse Oximetry 97 96 97 09/09/18 12:40 09/09/18 12:55 09/09/18 13:10 Temperature Pulse Rate 79 66 74 Respiratory Rate 16 16 16 Blood Pressure 87/51 L 105/58 L 101/57 L Pulse Oximetry 98 97 95 09/09/18 13:25 09/09/18 13:40 09/09/18 13:55 Temperature Pulse Rate 70 72 72 Respiratory Rate 16 18 16 Blood Pressure 102/59 L 103/60 111/66 Pulse Oximetry 98 97 98 09/09/18 14:10 09/09/18 14:55 09/09/18 20:00 Temperature 97.9 F 98.0 F Pulse Rate 73 68 84 Respiratory Rate 16 16 18 Blood Pressure 133/69 99/57 L 118/67 Pulse Oximetry 99 98 96 09/10/18 00:00 09/10/18 04:00 Temperature 98.0 F 98.1 F Pulse Rate 77 65 Respiratory Rate 18 18 Blood Pressure 92/51 L 123/74 Pulse Oximetry 96 96 Intake & Output 09/09/18 09/10/18 09/10/18 18:59 06:59 18:59 Intake Total 2780 / 2780 580 / 580 Output Total 1000 / 1000 950 / 950 Balance 1780 / 1780 -370 / -370 Weight 73.9 kg Intake: IV 2100 / 2100 100 / 100 NS Inj 1,000 ML @ 84 mls/hr IV. 1000 / 1000 CONT .[id number] [facility] Rx#:[id number] Privigen Inj 30 GM In Bag/ 300 / 300 Syringe 1 EACH @ 37.5 mls/hr IV .SIG TITRATE MARIVEL Rx#:[id number] NS Inj 500 ML @ 500 mls/hr IV. 500 / 500 SIG Q24H [facility]EL Rx#:[id number] Vancomycin Inj 1,000 MG In NS 250 / 250 Inj 250 ML @ 250 mls/hr IV.SIG Q8H [facility] Rx#:[id number] Ancef 2 GM Premix Inj 2 gm In 50 / 50 100 / 100 50 ml @ 200 mls/hr IV.SIG Q8H [facility] Rx#:[id number] Oral 680 / 680 480 / 480 Output: Urine 1000 / 1000 950 / 950 Other: Date of Last Bowel Movement 09/09/18 # Bowel Movements 1 Result Diagrams: 09/07/18 02:46 09/09/18 08:55 Laboratory Results: Laboratory Results - last 24 hr 09/09/18 09/09/18 09/09/18 08:55 08:55 12:38 Creatinine 0.47 L Estimated GFR Greater than 89 POC Glucose 135 H Vancomycin Trough 13.2 H Culture Results: Microbiology 09/07/18 16:09 Gram Stain - Final Fluid - Other Wound Culture - Preliminary No growth in 48 hours 09/07/18 16:09 Acid Fast Bacilli Smear - Final Fluid - Other No acid fast bacilli seen 09/06/18 22:20 Aerobic Blood Culture - Preliminary Blood - Peripheral No growth in 3 days Anaerobic Blood Culture - Preliminary No growth in 3 days 09/06/18 22:25 Aerobic Blood Culture - Preliminary Blood - Peripheral No growth in 3 days Anaerobic Blood Culture - Preliminary No growth in 3 days 09/07/18 16:09 Fungal Smear - Final Fluid - Other Medications: Active Medications Generic Name Dose Route Start Last Admin Trade Name Freq PRN Reason Stop Dose Admin Acetaminophen 650 mg 09/09/18 09:00 09/09/18 10:52 Tylenol PO 09/10/18 08:59 650 mg Q24H MARIVEL Administration Chlorhexidine Gluconate 3 pack 09/07/18 04:00 09/10/18 04:02 Chlorhexidine 2% Cloth TOPICAL 09/12/18 03:59 Not Given DAILY@0400 MARIVEL Diphenhydramine HCl 25 mg 09/09/18 09:00 09/09/18 10:52 Benadryl PO 09/10/18 08:59 25 mg Q24H MARIVEL Administration Ferrous Sulfate 325 mg 09/07/18 09:00 09/09/18 11:30 Ferosul PO 325 mg DAILY MARIVEL Administration Gabapentin 300 mg 09/07/18 09:00 09/09/18 18:17 Neurontin PO 300 mg TID MARIVEL Administration Heparin Sodium (Porcine) 5,000 units 09/06/18 22:00 09/06/18 22:52 Heparin Inj SQ 5,000 units Q12H MARIVEL Administration Hydromorphone HCl 2 mg 09/07/18 13:45 09/10/18 03:36 Dilaudid Pf Inj IV.PUSH 2 mg Q4H PRN Administration PAIN SCALE 6 TO 10 Cefazolin Sodium/Dextrose 2 gm in 50 mls @ 200 mls/hr 09/08/18 14:00 06:54 Ancef 2 Gm Premix Inj IV.SIG Infused Q8H MARIVEL Infusion Sodium Chloride 500 mls @ 500 mls/hr 09/09/18 09:00 09/09/18 12:01 Ns Inj IV.SIG 09/10/18 08:59 Infused Q24H MARIVEL Infusion Immune Globulin 30 gm/ 300 mls @ 37.5 mls/hr 09/09/18 12:00 09/09/18 16:13 Miscellaneous Medication IV.SIG 09/10/18 11:59 Infused TITRATE MARIVEL Infusion Protocol Lisinopril 10 mg 09/07/18 09:00 09/09/18 21:22 Prinivil PO 10 mg BID MARIVEL Administration Metoprolol Tartrate 50 mg 09/07/18 09:00 09/09/18 21:23 Lopressor PO 50 mg BID MARIVEL Administration Mupirocin 1 applicatio 09/07/18 21:00 09/09/18 21:24 Bactroban 2% Nasal Oint EACH NARE 09/12/18 09:01 1 applicatio BID MARIVEL Administration Ondansetron HCl 4 mg 09/06/18 21:34 09/07/18 18:34 Zofran Inj IV.PUSH 4 mg Q6H PRN Administration NAUSEA OR VOMITING Oxycodone/Acetaminophen 1 tab 09/06/18 21:34 09/08/18 07:58 Percocet 5/325 Mg PO 1 tab Q4H PRN Administration PAIN SCALE 1 TO 5 Pantoprazole Sodium 40 mg 09/07/18 09:00 09/09/18 11:30 Protonix PO 40 mg DAILY MARIVEL Administration Senna/Docusate Sodium 1 tab 09/07/18 09:00 09/09/18 21:22 Antonieta-Colace PO 1 tab BID MARIVEL Administration Sodium Chloride 2 ml 09/07/18 09:00 09/09/18 21:27 Ns Flush IV.FLUSH 2 ml BID MARIVEL Administration Tizanidine HCl 4 mg 09/07/18 09:00 09/09/18 21:22 Zanaflex PO 4 mg BID MARIVEL Administration Objective Remarks: GENERAL: Well-nourished, well-developed patient. He is talking on the phone. SKIN: Warm and dry. HEAD: Normocephalic. EYES: No scleral icterus. No injection or drainage. NECK: Supple, trachea midline. No JVD or lymphadenopathy. LYMPHATIC: No adenopathy. CARDIOVASCULAR: Regular rate and rhythm without murmurs. RESPIRATORY: Breath sounds equal bilaterally. No accessory muscle use. GASTROINTESTINAL: Abdomen soft, non-tender, nondistended. EXTREMITIES: No cyanosis, or edema. MUSCULOSKELETAL: Adequate muscle tone. NEUROLOGICAL: No obvious focal deficit. Awake, alert, and oriented x3. PSYCHIATRIC: Appropriate mood and affect; insight and judgment normal. Assessment/Plan - Plan 1. Low IgM level with elevated IgG and normal IgA. IgE was also elevated previously. He had a remote history of pneumonia when he was obese, weighing 450 pounds at that time. Since the gastric bypass surgery and losing the weight, he has no recurrent infection until he developed the left chest wall abscess last February. 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 He now represented with increased back pain, likely due to the osteomyelitis. There is some question if he is noncompliant with the administration of antibiotics. In anyway, a repeat IgM level is still low at 22. Previous flow cytometry showed a low amount of T granular lymphocytosis of about 5%. T-cell rearrangement studies showed a positive T-cell beta receptor rearrangement, but negative for gamma receptor rearrangement. This is of unclear clinical significance. He had good response to pneumococcal vaccination, but lack of response to diphtheria toxin. I doubt that he has a selective IgM deficiency, which is a very rare condition. September 10: Patient received IVIG yesterday and tolerated well. He has no obvious side effect. 2. Hypertension. 3. History of obesity, status post gastric bypass surgery. PLAN: 1. Continue antibiotic per infectious disease. 2. Hematology will see as needed.
[2018-09-10] MEDS: Ferrous Sulfate 325 MG Tablet PO SCH (08:39)
[2018-09-10] MEDS: Gabapentin 300 MG Capsule PO SCH ×3 (08:39→17:00)
[2018-09-10] MEDS: Lisinopril 10 MG Tablet PO SCH ×2 (08:39→21:06)
[2018-09-10] MEDS: Senna/Docusate Sodium 8.6/50 MG Tablet PO SCH ×2 (08:39→21:07)
[2018-09-10] MEDS: Mupirocin 2% Nasal Oint Topical Syringe EACH NARE SCH ×2 (08:40→21:07)
[2018-09-10] MEDS: Metoprolol Tartrate 50 MG Tablet PO SCH ×2 (08:40→21:06)
--- NOTE | 2018-09-10 13:52 | P.PNIM ---
Subjective Interval history: Follow up for L1/L2, osteomyelitis and MSSA: Patient seen and examined, states that p.o. narcotic is not helping. IV Dilaudid only helps for a short time. No fever. No nausea, no vomiting. Having bowel movements. Tolerating diet well. Continues with low back pain but mobilizing in and out of bed with minimal assistance. Physical Exam Vital signs: Vital Signs 09/09/18 13:55 09/09/18 14:10 09/09/18 14:55 Temperature 97.9 F Pulse Rate 72 73 68 Respiratory Rate 16 16 16 Blood Pressure 111/66 133/69 99/57 L Pulse Oximetry 98 99 98 09/09/18 20:00 09/10/18 00:00 09/10/18 04:00 Temperature 98.0 F 98.0 F 98.1 F Pulse Rate 84 77 65 Respiratory Rate 18 18 18 Blood Pressure 118/67 92/51 L 123/74 Pulse Oximetry 96 96 96 09/10/18 07:38 09/10/18 08:43 09/10/18 11:36 Temperature 98 F 97.3 F L Pulse Rate 68 59 L Respiratory Rate 16 16 16 Blood Pressure 149/80 H 115/59 L Pulse Oximetry Intake & Output 09/09/18 09/10/18 09/10/18 18:59 06:59 18:59 Intake Total 2780 / 2780 580 / 580 Output Total 1000 / 1000 950 / 950 Balance 1780 / 1780 -370 / -370 Weight 73.9 kg Intake: IV 2100 / 2100 100 / 100 NS Inj 1,000 ML @ 84 mls/hr IV. 1000 / 1000 CONT .[id number] MARIVEL Rx#:[id number] Privigen Inj 30 GM In Bag/ 300 / 300 Syringe 1 EACH @ 37.5 mls/hr IV .SIG TITRATE MARIVEL Rx#:[id number] NS Inj 500 ML @ 500 mls/hr IV. 500 / 500 SIG Q24H MARIVEL Rx#:[id number] Vancomycin Inj 1,000 MG In NS 250 / 250 Inj 250 ML @ 250 mls/hr IV.SIG Q8H MARIVEL Rx#:[id number] Ancef 2 GM Premix Inj 2 gm In 50 / 50 100 / 100 50 ml @ 200 mls/hr IV.SIG Q8H MARIVEL Rx#:[id number] Oral 680 / 680 480 / 480 Output: Urine 1000 / 1000 950 / 950 Other: Date of Last Bowel Movement 09/09/18 # Bowel Movements 1 Narrative: GENERAL: 53-year-old well-developed well-nourished male. SKIN: Warm and dry. HEAD: Atraumatic. Normocephalic. EYES: Pupils equal and round. No scleral icterus. No injection or drainage. ENT: No nasal bleeding or discharge. Mucous membranes pink and moist. NECK: Trachea midline. No JVD. CARDIOVASCULAR: Regular rate and rhythm. RESPIRATORY: No accessory muscle use. Clear to auscultation. Breath sounds equal bilaterally. GASTROINTESTINAL: Abdomen soft, non-tender, nondistended. Hepatic and splenic margins not palpable. MUSCULOSKELETAL: Extremities without clubbing, cyanosis, or edema. No obvious deformities. Lumbar spine with incision, no exudate. Diffuse erythema with blanching of the skin area distal to incision. NEUROLOGICAL: Awake and alert. No obvious cranial nerve deficits. Motor grossly within normal limits. Five out of 5 muscle strength in the arms and 4 out of 5 legs. Normal speech. PSYCHIATRIC: Appropriate mood and affect; insight and judgment normal. Urinary Catheter Management Straight: Cath placed during this visit: yes Reason for continuing: Not indwelling catheter Insertion date: 09/07/18 Insertion time: 17:30 Results Labs CBC & Chem 7: 09/07/18 02:46 09/09/18 08:55 Labs: Microbiology 09/06/18 22:20 Blood - Peripheral Aerobic Blood Culture - Preliminary No growth in 4 days 09/06/18 22:20 Blood - Peripheral Anaerobic Blood Culture - Preliminary No growth in 4 days 09/06/18 22:25 Blood - Peripheral Aerobic Blood Culture - Preliminary No growth in 4 days 09/06/18 22:25 Blood - Peripheral Anaerobic Blood Culture - Preliminary No growth in 4 days 09/07/18 16:09 Fluid - Other Gram Stain - Final 09/07/18 16:09 Fluid - Other Wound Culture - Final No growth in 72 hours (aerobically and anaerobically ) 09/07/18 16:09 Fluid - Other Acid Fast Bacilli Smear - Final No acid fast bacilli seen Assessment and Plan Plan 53-year-old male with PMHx of L1/L2 osteomyelitis/MSSA 2017 was receiving Cefazolin via PICC line to the right upper extremity. Also history of hypertension, osteoporosis, COPD, nephrolithiasis and obstructive sleep apnea. Known history of cholelithiasis. Presented to the ED emergency department at [facility] in [place] with increasing low back pain. He is currently taking acetaminophen for pain relief. Patient was transferred to [facility] for possible neurosurgery. Pt. accepted by Dr. Melendez and admitted to [facility] services. MRI of the lumbar spine revealed interval progression of discitis at L1/L2 with minimal progression of vertebral body height loss at L2. Retropulsion of the posterior- superior cortex associated disc bulging central disc protrusion causing moderate spinal canal stenosis. T12 osteomyelitis. Unchanged phlegmon with adjacent psoas musculature and bilateral L2/3 neuroforaminal surrounding is in the L2/4. Patient has been hemodynamically stable, was transferred to hospitalist services. Chronic L1/2 osteomyelitis, + MSSA Hx of MSSA bacteremia, hx of clavicular abscess Noncompliance with antibiotic treatment Lumbar spine MRI, findings consistent with discitis osteomyelitis at L1-L2 with prominent compression deformity of L2, cleft of fluid signal corresponding to the disc space, focal signal abnormality and abnormal enhancement involving the right anterior inferior endplate of T12 concerning for second focus of ostium mellitus, no epidural abscess, minimal ill-defined prevertebral phlegmonous changes without focal drainable fluid collection, subcutaneous 2.5 x 3 x 2.4 cm abscess in the posterior soft tissue at T12-L1 level -Status post CT-guided biopsy 09/07, continue to follow culture -Appreciate ID input, discussed with Dr. Capellan-discontinued ceftriaxone and Flagyl, recommends to continue Vanco, restarted Ancef 2 GM q 8 -CRP trended down since last admission -Neurosurgery has evaluated, recommends to continue antibiotics, no neurosurgical intervention is required. Recommend TLSO brace when out of bed -Continue with present pain management-will increase Percocet to 10/325 1 p.o. every 4 as needed Continue with physical therapy -Cultures remain negative so far, ID to make final recommendations Hx of Low IgM -In July was evaluated by Dr. Ram, immunodeficiency workup done. Status post IVIG infusion 08/09/2018. At that time, heme believed the patient did not have primary immunodeficiency and this was likely reactive -Dr. Capellan recommends checking immunoglobulins and if low may need IVIG infusion and reevaluation by Dr. Ram, will follow up on levels. -IgM 22, IgE 435, IgG 1630, IgA 359. -Dr. Ram's input appreciated, S/P IVIG 09/09 -heme signed off Questionable Noncompliance with tx -d/w CM, per HHC, pt. non compliant with treatment. Unclear how many abx doses he missed. -pt. adamantly denies missing meds, confirmed with ex- as he has been staying with her. Essential hypertension -Continue metoprolol tartrate 50 mg twice daily and lisinopril 10 mg twice daily History of COPD Obstructive sleep apnea -Duonebs PRN -stable, continue to monitor GI Prophylaxis-pantoprazole DVT prophyalaxis -SCD/heparin subcu CM following, will assist with C Hopefully we can discharge by tomorrow when ID recommendations finalized Code Status: Full code Discussed Condition With: RN, patient, case management, Dr. Saleh Discharge Planning: waiting for final cultures, will go home with HHC, CM working with [facility] to coordinate abx Progress Note: Quality VTE Deep Vein Thrombosis/Pulmonary Embolism Present on Admission: No
--- NOTE | 2018-09-10 14:58 | P.DCO ---
Post Hospital Infusion Therapy - Infusion Therapy Location of Infusion Therapy: Home Health Care IV Infusion Order Appointment Date: 09/10/18 - Patient Information Patient Weight: 73.9 kg - Diagnosis (1) Osteomyelitis of lumbar spine Code(s): M46.26 - Osteomyelitis of vertebra, lumbar region (2) Discitis of lumbar region Code(s): M46.46 - Discitis, unspecified, lumbar region - Administer Medication Cefazolin Dose: 2 grams IV Directions: q 8 hours Start Treatment: 09/10/18 Stop Treatment: 10/21/18 - Additional Information Venous Access: PICC Line Additional Instructions: [x] Peripheral flush and dressing changes per protocol [x] Implanted port and central underliner: * Implanted port: 10 ml Normal Saline followed by 5 ml Heparin 100 units/ml Heparin flush after each use and monthly to maintain. [] May leave port accessed during therapy. [] May leave peripheral site accessed for duration of therapy. [x] If patient has SOB or respiratory distress, check oxygen saturation. If less than 90% or clinical signs of respiratory distress, administer oxygen at 2 L/min. via nasal cannula and notify physician. [x] Anaphylaxis/Reaction orders: * Stop infusion. * Keep IV line open with saline flush. * Notify physician. * Monitor vital signs every 15 minutes until symptoms resolve. * Check Oxygen saturation; Oxygen at 2 L/min. via nasal cannula if less than 90% or clinical signs of respiratory distress. * Administer diphenhydramine (Benadryl) 25 mg IV STAT, (unless patient has received as pre-med). May repeat once, if necessary. * Solu-Cortef 250 mg IVP over 30-60 seconds, use 100 mg vials for each dissolution. * Epinephrine (1mg/1 ml) 0.3 mg subcutaneously or IVP now with any signs of respiratory distress. * Check with physician for new additional pre-med orders if patient is re- challenged or re-treated. [x] May remove PICC line when treatment complete, after confirming with Physician. [x] If the patient is admitted to the hospital, the ED, or transferred via [facility] , complete transfer form including medication reconciliation order sheet. Weekly Labs: CBC w/diff, Creatinine, CRP, LFTs (Hepatic Function Test) Additional Information: Please draw weekly labs and fax to the number provided below. If any abnormal lab values or change in clinical condition please call the number below. Dr.Reba Mathias office: Address: [address] [place] [address] - Case Management Consult Case Management Consult-IVF: Yes - Patient Information Allergies No Known Allergies Allergy (Uncoded 09/06/18 23:22) none NKA
--- NOTE | 2018-09-10 15:04 | P.PNID ---
Subjective Remarks: Mr. Mcgraw is a 53 y/o CM with PMHx of left anterior chest wall/ clavicular abscess in March 2018. He reports he had back pain even then and the focus of care remained his clavicle. Patient underwent incision and drainage on 2017 and was prescribed an antibiotic course. He then presented to the emergency department on 06/19/2018 with severe lumbago. It appears that during his February admission for his left chest wall infection he was diagnosed with MSSA bacteremia and chest wall abscess. Again during his June admission patient had biopsy of the lumbar spine area and was found to have MSSA and therefore was discharged on ceftriaxone IV using a PICC line and was supposed to follow-up with infectious disease. It appears that during his June 2018 admission patient underwent an L1 laminectomy patient then presented to [facility] on August 05, 2018 due to persistent back pain despite treatment with IV antibiotics. An MRI of the spine was done which showed osteomyelitis discitis of L1 and L2 with peripheral phlegmon extending into the ventral epidural space. No drainable abscess identified. Laminectomy of L1 to small fluid collection in the subcutaneous soft tissues also identified but deemed as possible postsurgical versus infectious process. He also has myositis of the proximal psoas muscles based on that imaging from August 05, 2018. Patient was then transferred to [facility] for possible neurosurgery. Neurosurgery did not feel any need for surgical intervention. He had blood cultures from this admission which was positive for MSSA. He was treated with IV Ancef and discharged on this regimen as he was thought to be improving. Patient had a PICC line on discharge. Patients ex agreed to take him and complete his treatment during that admission. He followed up with Dr.Reba Mathias per my discussion with her. has been concerned about patients compliance with IV antibiotics. was informed patients was not willing to keep him in her home and there was a concern for patient being homeless. These facts need to be confirmed with and patients home health company. Perhaps a bag count for Ancef IV may help to see if he has infused the appropriate amount of bags. MRI appears improved based on response. Patient had his PICC line removed after admission, repeat blood cultures are pending. Patient also had IR guided aspiration of spine ordered by Neurosurgery. At the time of my evaluation,patient is in the [facility] under critical care service but hemodynamically stable. He is oriented x 2 for me and was able to move all 4 extremities. Overnight events reviewed No fevers No rash No diarrhea Complained of back pain but was able to sit up Antibiotics: Ceftriaxone IV Vanco IV Lines: Lines ok Past Medical History: reviewed Allergies/Adverse Reactions: Allergies No Known Allergies Allergy (Uncoded 09/06/18 23:22) none NKA Objective Vital Signs 09/09/18 20:00 09/10/18 00:00 09/10/18 04:00 Temperature 98.0 F 98.0 F 98.1 F Pulse Rate 84 77 65 Respiratory Rate 18 18 18 Blood Pressure 118/67 92/51 L 123/74 Pulse Oximetry 96 96 96 09/10/18 07:38 09/10/18 08:43 09/10/18 11:36 Temperature 98 F 97.3 F L Pulse Rate 68 59 L Respiratory Rate 16 16 16 Blood Pressure 149/80 H 115/59 L Pulse Oximetry Intake & Output 09/09/18 09/10/18 09/10/18 18:59 06:59 18:59 Intake Total 2780 / 2780 580 / 580 Output Total 1000 / 1000 950 / 950 Balance 1780 / 1780 -370 / -370 Weight 73.9 kg 73.9 kg Intake: IV 2100 / 2100 100 / 100 NS Inj 1,000 ML @ 84 mls/hr IV. 1000 / 1000 CONT .[id number] MARIVEL Rx#:[id number] Privigen Inj 30 GM In Bag/ 300 / 300 Syringe 1 EACH @ 37.5 mls/hr IV .SIG TITRATE MARIVEL Rx#:[id number] NS Inj 500 ML @ 500 mls/hr IV. 500 / 500 SIG Q24H MARIVEL Rx#:[id number] Vancomycin Inj 1,000 MG In NS 250 / 250 Inj 250 ML @ 250 mls/hr IV.SIG Q8H MARIVEL Rx#:[id number] Ancef 2 GM Premix Inj 2 gm In 50 / 50 100 / 100 50 ml @ 200 mls/hr IV.SIG Q8H MARIVEL Rx#:[id number] Oral 680 / 680 480 / 480 Output: Urine 1000 / 1000 950 / 950 Other: Date of Last Bowel Movement 09/09/18 # Bowel Movements 1 09/06/18 22:20 Blood - Peripheral Aerobic Blood Culture - Preliminary No growth in 4 days 09/06/18 22:20 Blood - Peripheral Anaerobic Blood Culture - Preliminary No growth in 4 days 09/06/18 22:25 Blood - Peripheral Aerobic Blood Culture - Preliminary No growth in 4 days 09/06/18 22:25 Blood - Peripheral Anaerobic Blood Culture - Preliminary No growth in 4 days 09/07/18 16:09 Fluid - Other Gram Stain - Final 09/07/18 16:09 Fluid - Other Wound Culture - Final No growth in 72 hours (aerobically and anaerobically ) 09/07/18 16:09 Fluid - Other Acid Fast Bacilli Smear - Final No acid fast bacilli seen 09/07/18 16:09 Fluid - Other Mycobacterial Culture - Pending 09/07/18 16:09 Fluid - Other Fungal Smear - Final 09/07/18 16:09 Fluid - Other Fungal Culture - Pending Lab - Chemistry Results 09/09/18 09/09/18 08:55 12:38 Creatinine 0.47 L Estimated GFR Greater than 89 POC Glucose 135 H Imaging: ITS Impressions Needle Biopsy/Aspiration X-Ray 09/07/18 00:00 CONCLUSION: 1. Uncomplicated needle biopsy of the L1/L2 disc as above. Lumbar Spine MRI 09/07/18 08:51 CONCLUSION: 1. Findings consistent with discitis and osteomyelitis at L1-2 with prominent compression deformity of the L2 superior endplate and retropulsion of the posterior L2 cortex resulting in central canal narrowing to about 8 mm. There is a cleft of fluid signal corresponding to the disc space. Consider atypical infection. 2. Focal signal abnormality and abnormal enhancement involving the right anterior inferior endplate of T12 concerning for second focus of osteomyelitis. 3. No evidence for epidural abscess. 4. Minimal ill-defined prevertebral phlegmonous changes without focal drainable fluid collection. 5. Subcutaneous 2.5 x 3.0 x 2.4 cm abscess in the posterior soft tissues at the T12-L1 level. Physical Exam: GENERAL: Well-nourished well-developed, not in acute distress SKIN: Cool and dry, no generalized rash HEAD: Atraumatic. Normocephalic. No temporal or scalp tenderness. EYES: Pupils equal round and reactive. Scleral icterus. No injection or drainage. No petechia ENT: Nothing abnormal detected NECK: Trachea midline. Supple, nontender, no meningeal signs. CARDIOVASCULAR: HS audible. RESPIRATORY: Clear to auscultation bilaterally. GASTROINTESTINAL: Abdomen soft nontender. MUSCULOSKELETAL: Extremities without clubbing, cyanosis. NEUROLOGICAL: Alert oriented 3. Nonfocal. Psych cooperative IV line sites ok. Assessment and Plan (1) Osteomyelitis of lumbar spine Status: Chronic Code(s): M46.26 - Osteomyelitis of vertebra, lumbar region (2) Discitis of lumbar region Status: Acute Code(s): M46.46 - Discitis, unspecified, lumbar region - Plan Infective Discitis (CRP improved from 21 first admission to 0.95 this admission) h/o MSSA bacteremia Hypogammaglobulinemia. h/o MRSA infection Clavicular abscess COPD by history Recs Continue Ancef IV (on discharge needs pump for infusion if processed through [facility] infusion center outpatient) Post hospital infusion orders in chart. tala Luke [employer]: Once infusion set up patient may be discharged from ID standpoint. Patient needs follow up with Dr.Reba Mathias case management arranging follow up with . Will eventually need to be on oral suppression after completion of IV Ancef. Will sign off please call back if any change in clinical condition or questions.
[2018-09-10] MEDS: oxyCODONE/Acetaminophen 10/325 Tablet PO PRN (17:00)
[2018-09-11] MEDS: HYDROmorphone PF Inj 2 MG/ML Vial IV.PUSH PRN ×2 (03:57→08:19)
[2018-09-11] MEDS: Chlorhexidine Gluconate 2% 1 Pack (2 Cloths) TOPICAL SCH (04:02)
[2018-09-11] MEDS: ceFAZolin 2 GM Premix Inj 2 GM/50 ML PIGGYBACK IV.SIG SCH ×3 (05:08→22:51)
[2018-09-11] MEDS: Gabapentin 300 MG Capsule PO SCH ×3 (08:20→18:01)
[2018-09-11] MEDS: Senna/Docusate Sodium 8.6/50 MG Tablet PO SCH ×2 (08:20→22:47)
[2018-09-11] MEDS: Ferrous Sulfate 325 MG Tablet PO SCH (08:20)
[2018-09-11] MEDS: Mupirocin 2% Nasal Oint Topical Syringe EACH NARE SCH ×2 (08:21→22:47)
[2018-09-11] MEDS: Lisinopril 10 MG Tablet PO SCH ×2 (08:21→22:47)
[2018-09-11] MEDS: Metoprolol Tartrate 50 MG Tablet PO SCH ×2 (08:21→22:47)
[2018-09-11] MEDS: oxyCODONE/Acetaminophen 10/325 Tablet PO PRN ×3 (12:28→22:47)
--- NOTE | 2018-09-11 16:04 | P.PNIM ---
Subjective Interval history: Follow up for L1/L2, osteomyelitis and MSSA: Patient seen and examined, no chest pain, no shortness of breath. Continues with low back pain, has been requesting IV Dilaudid throughout night. Patient instructed that p.o. narcotics were increased yesterday and he will be discharge on oral medications not IV. Informed that we will start weaning off IV narcotics. No nausea, no vomiting. Moving bowels. No fever. Complaining of tenderness to scar on the left chest wall where he had a previous abscess, there is no erythema noted. Physical Exam Vital signs: Vital Signs 09/10/18 16:00 09/10/18 20:00 09/11/18 00:00 Temperature 98.2 F 97.6 F 97.9 F Pulse Rate 100 H 80 66 Respiratory Rate 17 18 18 Blood Pressure 164/80 H 194/88 H 126/70 Pulse Oximetry 93 L 97 96 09/11/18 08:00 09/11/18 12:00 Temperature 98 F 97.9 F Pulse Rate 68 62 Respiratory Rate 16 16 Blood Pressure 169/75 H 153/79 H Pulse Oximetry 97 98 Intake & Output 09/10/18 09/11/18 09/11/18 18:59 06:59 18:59 Intake Total 475 / 475 340 / 340 50 / 50 Output Total 500 / 500 600 / 600 Balance -25 / -25 -260 / -260 50 / 50 Weight 73.9 kg 76.3 kg Intake: IV 50 / 50 100 / 100 50 / 50 Ancef 2 GM Premix Inj 2 gm In 50 / 50 100 / 100 50 / 50 50 ml @ 200 mls/hr IV.SIG Q8H [facility] Rx#:[id number] Oral 425 / 425 240 / 240 Output: Urine 500 / 500 600 / 600 Other: # Voids 2 1 Date of Last Bowel Movement 09/10/18 09/10/18 # Bowel Movements 1 Narrative: GENERAL: 53-year-old well-developed well-nourished male. SKIN: Warm and dry. Scar noted to left upper chest wall below clavicle, tender to palpation, no erythema, no drainage, no fluctuance noted. HEAD: Atraumatic. Normocephalic. EYES: Pupils equal and round. No scleral icterus. No injection or drainage. ENT: No nasal bleeding or discharge. Mucous membranes pink and moist. NECK: Trachea midline. No JVD. CARDIOVASCULAR: Regular rate and rhythm. RESPIRATORY: No accessory muscle use. Clear to auscultation. Breath sounds equal bilaterally. GASTROINTESTINAL: Abdomen soft, non-tender, nondistended. Hepatic and splenic margins not palpable. MUSCULOSKELETAL: Extremities without clubbing, cyanosis, or edema. No obvious deformities. Lumbar spine with incision, no exudate. Diffuse erythema with blanching of the skin area distal to incision. NEUROLOGICAL: Awake and alert. No obvious cranial nerve deficits. Motor grossly within normal limits. Five out of 5 muscle strength in the arms and 4 out of 5 legs. Normal speech. PSYCHIATRIC: Appropriate mood and affect; insight and judgment normal. Urinary Catheter Management Straight: Cath placed during this visit: yes Reason for continuing: Not indwelling catheter Insertion date: 09/07/18 Insertion time: 17:30 Results Labs CBC & Chem 7: 09/07/18 02:46 09/09/18 08:55 Labs: Microbiology 09/06/18 22:20 Blood - Peripheral Aerobic Blood Culture - Final No growth in 5 days 09/06/18 22:20 Blood - Peripheral Anaerobic Blood Culture - Final No growth in 5 days 09/06/18 22:25 Blood - Peripheral Aerobic Blood Culture - Final No growth in 5 days 09/06/18 22:25 Blood - Peripheral Anaerobic Blood Culture - Final No growth in 5 days Assessment and Plan (1) Osteomyelitis of lumbar spine: Code(s): M46.26 - Osteomyelitis of vertebra, lumbar region Status: Chronic (2) Discitis of lumbar region: Code(s): M46.46 - Discitis, unspecified, lumbar region Status: Acute Plan 53-year-old male with PMHx of L1/L2 osteomyelitis/MSSA 2017 was receiving Cefazolin via PICC line to the right upper extremity. Also history of hypertension, osteoporosis, COPD, nephrolithiasis and obstructive sleep apnea. Known history of cholelithiasis. Presented to the ED emergency department at [facility] in [place] with increasing low back pain. He is currently taking acetaminophen for pain relief. Patient was transferred to [facility] for possible neurosurgery. Pt. accepted by Dr. Melendez and admitted to [facility] services. MRI of the lumbar spine revealed interval progression of discitis at L1/L2 with minimal progression of vertebral body height loss at L2. Retropulsion of the posterior- superior cortex associated disc bulging central disc protrusion causing moderate spinal canal stenosis. T12 osteomyelitis. Unchanged phlegmon with adjacent psoas musculature and bilateral L2/3 neuroforaminal surrounding is in the L2/4. Patient has been hemodynamically stable, was transferred to hospitalist services. Chronic L1/2 osteomyelitis, + MSSA Hx of MSSA bacteremia, hx of clavicular abscess Noncompliance with antibiotic treatment Lumbar spine MRI, findings consistent with discitis osteomyelitis at L1-L2 with prominent compression deformity of L2, cleft of fluid signal corresponding to the disc space, focal signal abnormality and abnormal enhancement involving the right anterior inferior endplate of T12 concerning for second focus of ostium mellitus, no epidural abscess, minimal ill-defined prevertebral phlegmonous changes without focal drainable fluid collection, subcutaneous 2.5 x 3 x 2.4 cm abscess in the posterior soft tissue at T12-L1 level -Status post CT-guided biopsy 09/07, continue to follow culture -Appreciate ID input, discussed with Dr. Capellan-discontinued ceftriaxone and Flagyl, recommends to continue Vanco, restarted Ancef 2 GM q 8 -CRP trended down since last admission -Neurosurgery has evaluated, recommends to continue antibiotics, no neurosurgical intervention is required. Recommend TLSO brace when out of bed -Continue with present pain management-increased Percocet to 10/325 1 p.o. every 4 as needed. Will start weaning off IV Dilaudid. Continue with physical therapy -Cultures finalized, appreciate ID input, recommendations provided-continue with IV Ancef 2 g IV every 8. Patient already has PICC line right upper extremity. Patient is to follow-up with Dr. Stew Asencio of Low IgM -In July was evaluated by Dr. Rma, immunodeficiency workup done. Status post IVIG infusion 08/09/2018. At that time, ami believed the patient did not have primary immunodeficiency and this was likely reactive -Dr. Capellan recommends checking immunoglobulins and if low may need IVIG infusion and reevaluation by Dr. Ram, will follow up on levels. -IgM 22, IgE 435, IgG 1630, IgA 359. -Dr. Ram's input appreciated, S/P IVIG 09/09 -ami signed off Questionable Noncompliance with tx -d/w CM, per C, pt. non compliant with treatment. Unclear how many abx doses he missed. -pt. adamantly denies missing meds, confirmed with ex- as he has been staying with her. Essential hypertension -Continue metoprolol tartrate 50 mg twice daily and lisinopril 10 mg twice daily History of COPD Obstructive sleep apnea -Duonebs PRN -stable, continue to monitor GI Prophylaxis-pantoprazole DVT prophyalaxis -SCD/heparin subcu CM following, waiting for [facility] to finalize arrangements. Patient is ready for discharge home with home health care Needs to follow-up with Dr. Mathias, waiting for callback from their office. Code Status: Full code Discussed Condition With: RN, pt, CM Dr. Saleh Discharge Planning: Patient is ready for discharge, waiting on [facility] to complete antibiotic arrangements at patient's home versus infusion center. Progress Note: Quality VTE Deep Vein Thrombosis/Pulmonary Embolism Present on Admission: No
[2018-09-12] MEDS: oxyCODONE/Acetaminophen 10/325 Tablet PO PRN ×5 (03:06→21:50)
[2018-09-12] MEDS: ceFAZolin 2 GM Premix Inj 2 GM/50 ML PIGGYBACK IV.SIG SCH ×3 (05:44→21:10)
[2018-09-12] MEDS: Lisinopril 10 MG Tablet PO SCH ×2 (09:50→21:10)
[2018-09-12] MEDS: Mupirocin 2% Nasal Oint Topical Syringe EACH NARE SCH (09:50)
[2018-09-12] MEDS: Ferrous Sulfate 325 MG Tablet PO SCH (09:50)
[2018-09-12] MEDS: Gabapentin 300 MG Capsule PO SCH ×3 (09:50→18:05)
[2018-09-12] MEDS: Metoprolol Tartrate 50 MG Tablet PO SCH ×2 (09:50→21:11)
[2018-09-12] MEDS: Senna/Docusate Sodium 8.6/50 MG Tablet PO SCH ×2 (09:50→21:11)
--- NOTE | 2018-09-12 10:16 | P.PNIM ---
Subjective Interval history: Follow up for L1/L2, osteomyelitis and MSSA: Patient seen and examined, low back pain stable on p.o. narcotics. Has not had BM for 2 days , feels uncomfortable. Current stool softeners not working. No nausea, no vomiting. Eating well. Afebrile. Asking about discharge plan. Physical Exam Vital signs: Vital Signs 09/11/18 12:00 09/11/18 16:00 09/11/18 20:00 Temperature 97.9 F 97.7 F 98.8 F Pulse Rate 62 61 70 Respiratory Rate 16 16 20 Blood Pressure 153/79 H 138/65 157/79 H Pulse Oximetry 98 96 96 09/11/18 23:18 09/12/18 00:00 09/12/18 08:00 Temperature 98.3 F 97.2 F L Pulse Rate 71 73 Respiratory Rate 18 18 17 Blood Pressure 95/55 L 139/65 Pulse Oximetry 97 97 Intake & Output 09/11/18 09/12/18 09/12/18 18:59 06:59 18:59 Intake Total 610 / 610 1300 / 1300 Balance 610 / 610 1300 / 1300 Intake: IV 50 / 50 100 / 100 Ancef 2 GM Premix Inj 2 gm In 50 / 50 100 / 100 50 ml @ 200 mls/hr IV.SIG Q8H [facility] Rx#:[id number] Oral 560 / 560 1200 / 1200 Other: # Voids 5 5 Date of Last Bowel Movement 09/10/18 09/10/18 Narrative: GENERAL: 53-year-old well-developed well-nourished male. SKIN: Warm and dry. Scar noted to left upper chest wall below clavicle, tender to palpation, no erythema, no drainage, no fluctuance noted. HEAD: Atraumatic. Normocephalic. EYES: Pupils equal and round. No scleral icterus. No injection or drainage. ENT: No nasal bleeding or discharge. Mucous membranes pink and moist. NECK: Trachea midline. No JVD. CARDIOVASCULAR: Regular rate and rhythm. RESPIRATORY: No accessory muscle use. Clear to auscultation. Breath sounds equal bilaterally. GASTROINTESTINAL: Abdomen soft, non-tender, nondistended. Hepatic and splenic margins not palpable. MUSCULOSKELETAL: Extremities without clubbing, cyanosis, or edema. No obvious deformities. Lumbar spine with incision, no exudate. Diffuse erythema with blanching of the skin area distal to incision. NEUROLOGICAL: Awake and alert. No obvious cranial nerve deficits. Motor grossly within normal limits. Five out of 5 muscle strength in the arms and 4 out of 5 legs. Normal speech. PSYCHIATRIC: Appropriate mood and affect; insight and judgment normal. Urinary Catheter Management Straight: Cath placed during this visit: yes Reason for continuing: Not indwelling catheter Insertion date: 09/07/18 Insertion time: 17:30 Results Labs CBC & Chem 7: 09/07/18 02:46 09/09/18 08:55 Labs: Microbiology 09/06/18 22:20 Blood - Peripheral Aerobic Blood Culture - Final No growth in 5 days 09/06/18 22:20 Blood - Peripheral Anaerobic Blood Culture - Final No growth in 5 days 09/06/18 22:25 Blood - Peripheral Aerobic Blood Culture - Final No growth in 5 days 09/06/18 22:25 Blood - Peripheral Anaerobic Blood Culture - Final No growth in 5 days Assessment and Plan (1) Osteomyelitis of lumbar spine: Code(s): M46.26 - Osteomyelitis of vertebra, lumbar region Status: Chronic (2) Discitis of lumbar region: Code(s): M46.46 - Discitis, unspecified, lumbar region Status: Acute Plan 53-year-old male with PMHx of L1/L2 osteomyelitis/MSSA 2017 was receiving Cefazolin via PICC line to the right upper extremity. Also history of hypertension, osteoporosis, COPD, nephrolithiasis and obstructive sleep apnea. Known history of cholelithiasis. Presented to the ED emergency department at [facility] in [place] with increasing low back pain. He is currently taking acetaminophen for pain relief. Patient was transferred to [facility] for possible neurosurgery. Pt. accepted by Dr. Melendez and admitted to [facility] services. MRI of the lumbar spine revealed interval progression of discitis at L1/L2 with minimal progression of vertebral body height loss at L2. Retropulsion of the posterior- superior cortex associated disc bulging central disc protrusion causing moderate spinal canal stenosis. T12 osteomyelitis. Unchanged phlegmon with adjacent psoas musculature and bilateral L2/3 neuroforaminal surrounding is in the L2/4. Patient has been hemodynamically stable, was transferred to hospitalist services. Chronic L1/2 osteomyelitis, + MSSA Hx of MSSA bacteremia, hx of clavicular abscess Noncompliance with antibiotic treatment Lumbar spine MRI, findings consistent with discitis osteomyelitis at L1-L2 with prominent compression deformity of L2, cleft of fluid signal corresponding to the disc space, focal signal abnormality and abnormal enhancement involving the right anterior inferior endplate of T12 concerning for second focus of ostium mellitus, no epidural abscess, minimal ill-defined prevertebral phlegmonous changes without focal drainable fluid collection, subcutaneous 2.5 x 3 x 2.4 cm abscess in the posterior soft tissue at T12-L1 level -Status post CT-guided biopsy 09/07, continue to follow culture -Appreciate ID input, discussed with Dr. Capellan-discontinued ceftriaxone and Flagyl, recommends to continue Vanco, restarted Ancef 2 GM q 8 -CRP trended down since last admission -Neurosurgery has evaluated, recommends to continue antibiotics, no neurosurgical intervention is required. Recommend TLSO brace when out of bed -Continue with present pain management-increased Percocet to 10/325 1 p.o. every 4 as needed. Will start weaning off IV Dilaudid. Continue with physical therapy -Cultures finalized, appreciate ID input, recommendations provided-continue with IV Ancef 2 g IV every 8. Patient already has PICC line right upper extremity. Patient is to follow-up with Dr. Stew Asencio of Low IgM -In July was evaluated by Dr. Ram, immunodeficiency workup done. Status post IVIG infusion 08/09/2018. At that time, ami believed the patient did not have primary immunodeficiency and this was likely reactive -Dr. Capellan recommends checking immunoglobulins and if low may need IVIG infusion and reevaluation by Dr. Ram, will follow up on levels. -IgM 22, IgE 435, IgG 1630, IgA 359. -Dr. Ram's input appreciated, S/P IVIG 09/09 -heme signed off Questionable Noncompliance with tx -d/w CM, per C, pt. non compliant with treatment. Unclear how many abx doses he missed. -pt. adamantly denies missing meds, confirmed with ex- as he has been staying with her. Essential hypertension -Continue metoprolol tartrate 50 mg twice daily and lisinopril 10 mg twice daily History of COPD Obstructive sleep apnea -Duonebs PRN -stable, continue to monitor Constipation Continue with bowel regimen, discussed with RN to give as needed meds today GI Prophylaxis-pantoprazole DVT prophyalaxis -SCD/heparin subcu CM following, waiting for [facility] to finalize arrangements. Patient is ready for discharge home with home health care Needs to follow-up with Dr. Mathias, waiting for callback from their office. Code Status: Full code Discussed Condition With: RN, pt, CM Dr. Saleh Discharge Planning: Patient is ready for discharge, waiting on [facility] to complete antibiotic arrangements at patient's home versus infusion center. Progress Note: Quality VTE Deep Vein Thrombosis/Pulmonary Embolism Present on Admission: No
[2018-09-13] MEDS: oxyCODONE/Acetaminophen 10/325 Tablet PO PRN ×5 (01:49→22:56)
[2018-09-13] MEDS: ceFAZolin 2 GM Premix Inj 2 GM/50 ML PIGGYBACK IV.SIG SCH ×3 (06:19→21:11)
--- NOTE | 2018-09-13 07:32 | P.PNONC ---
Subjective Interval history: Patient still has back pain but controlled. He remains afebrile. He denies chest pain or palpitation. He has no shortness of breath or cough. Objective Vital Signs/Intake & Output: Vital Signs 09/12/18 08:00 09/12/18 12:00 09/12/18 16:00 Temperature 97.2 F L 97.8 F 97.6 F Pulse Rate 73 69 62 Respiratory Rate 17 16 17 Blood Pressure 139/65 136/74 133/69 Pulse Oximetry 97 96 97 09/12/18 20:00 09/13/18 00:00 Temperature 97.8 F 98.2 F Pulse Rate 70 59 L Respiratory Rate 16 16 Blood Pressure 100/49 L 118/64 Pulse Oximetry 96 96 Intake & Output 09/12/18 09/13/18 09/13/18 18:59 06:59 18:59 Intake Total 810 / 810 1540 / 1540 Balance 810 / 810 1540 / 1540 Intake: IV 50 / 50 100 / 100 Ancef 2 GM Premix Inj 2 gm In 50 / 50 100 / 100 50 ml @ 200 mls/hr IV.SIG Q8H [facility] Rx#:[id number] Oral 760 / 760 1440 / 1440 Other: # Voids 5 # Incontinent Voids 4 Date of Last Bowel Movement 09/12/18 09/12/18 # Incontinent Bowel Movements 2 Result Diagrams: 09/07/18 02:46 09/09/18 08:55 Culture Results: Microbiology 09/06/18 22:20 Aerobic Blood Culture - Final Blood - Peripheral No growth in 5 days Anaerobic Blood Culture - Final No growth in 5 days 09/06/18 22:25 Aerobic Blood Culture - Final Blood - Peripheral No growth in 5 days Anaerobic Blood Culture - Final No growth in 5 days 09/07/18 16:09 Gram Stain - Final Fluid - Other Wound Culture - Final No growth in 72 hours (aerobically and anaerobically) Medications: Active Medications Generic Name Dose Route Start Last Admin Trade Name Freq PRN Reason Stop Dose Admin Ferrous Sulfate 325 mg 09/07/18 09:00 09/12/18 09:50 Ferosul PO 325 mg DAILY [facility] Administration Gabapentin 300 mg 09/07/18 09:00 09/12/18 18:05 Neurontin PO 300 mg TID [facility] Administration Heparin Sodium (Porcine) 5,000 units 09/06/18 22:00 09/06/18 22:52 Heparin Inj SQ 5,000 units Q12H [facility] Administration Cefazolin Sodium/Dextrose 2 gm in 50 mls @ 200 mls/hr 09/08/18 14:00 06:49 Ancef 2 Gm Premix Inj IV.SIG Infused Q8H [facility] Infusion Lactulose 30 ml 09/06/18 21:34 09/12/18 12:47 Lactulose Liq PO 30 ml DAILY PRN Administration SEVERE CONSITIPATION Lisinopril 10 mg 09/07/18 09:00 09/12/18 21:10 Prinivil PO 10 mg BID [facility] Administration Metoprolol Tartrate 50 mg 09/07/18 09:00 09/12/18 21:11 Lopressor PO 50 mg BID [facility] Administration Ondansetron HCl 4 mg 09/06/18 21:34 09/07/18 18:34 Zofran Inj IV.PUSH 4 mg Q6H PRN Administration NAUSEA OR VOMITING Oxycodone/Acetaminophen 1 tab 09/10/18 13:04 09/13/18 06:18 Percocet 10/325 Mg PO 1 tab Q4H PRN Administration PAIN 6-10;IF ABLE TO TAKE PO Pantoprazole Sodium 40 mg 09/07/18 09:00 09/12/18 09:50 Protonix PO 40 mg DAILY [facility] Administration Senna/Docusate Sodium 1 tab 09/07/18 09:00 09/12/18 21:11 Antonieta-Colace PO 1 tab BID [facility] Administration Sodium Chloride 2 ml 09/07/18 09:00 09/12/18 21:15 Ns Flush IV.FLUSH 2 ml BID [facility] Administration Sodium Chloride 2 ml 09/06/18 21:34 09/12/18 21:11 Ns Flush IV.FLUSH 2 ml PRN PRN Administration FLUSH AFTER USING IV ACCESS Tizanidine HCl 4 mg 09/07/18 09:00 09/12/18 21:11 Zanaflex PO 4 mg BID [facility] Administration Objective Remarks: GENERAL: Well-nourished, well-developed patient. Talking on his phone. SKIN: Warm and dry. HEAD: Normocephalic. EYES: No scleral icterus. No injection or drainage. NECK: Supple, trachea midline. No JVD or lymphadenopathy. LYMPHATIC: No adenopathy. CARDIOVASCULAR: Regular rate and rhythm without murmurs. RESPIRATORY: Breath sounds equal bilaterally. No accessory muscle use. GASTROINTESTINAL: Abdomen soft, non-tender, nondistended. EXTREMITIES: No cyanosis, or edema. MUSCULOSKELETAL: Adequate muscle tone. NEUROLOGICAL: No obvious focal deficit. Awake, alert, and oriented x3. PSYCHIATRIC: Appropriate mood and affect; insight and judgment normal. Assessment/Plan - Plan 1. Low IgM level with elevated IgG and normal IgA. IgE was also elevated previously. He had a remote history of pneumonia when he was obese, weighing 450 pounds at that time. Since the gastric bypass surgery and losing the weight, he has no recurrent infection until he developed the left chest wall abscess last February. 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 He now represented with increased back pain, likely due to the osteomyelitis. There is some question if he is noncompliant with the administration of antibiotics. In anyway, a repeat IgM level is still low at 22. Previous flow cytometry showed a low amount of T granular lymphocytosis of about 5%. T-cell rearrangement studies showed a positive T-cell beta receptor rearrangement, but negative for gamma receptor rearrangement. This is of unclear clinical significance. He had good response to pneumococcal vaccination, but lack of response to diphtheria toxin. I doubt that he has a selective IgM deficiency, which is a very rare condition. September 10: Patient received IVIG yesterday and tolerated well. He has no obvious side effect. September 13: Patient remains afebrile. His back pain is controlled. PLAN: 1. Continue antibiotic per infectious disease. 2. Hematology will see as needed.
[2018-09-13] MEDS: Gabapentin 300 MG Capsule PO SCH ×3 (09:17→17:51)
[2018-09-13] MEDS: Ferrous Sulfate 325 MG Tablet PO SCH (09:17)
[2018-09-13] MEDS: Metoprolol Tartrate 50 MG Tablet PO SCH ×2 (09:17→21:09)
[2018-09-13] MEDS: Senna/Docusate Sodium 8.6/50 MG Tablet PO SCH ×2 (09:17→21:11)
[2018-09-13] MEDS: Lisinopril 10 MG Tablet PO SCH ×2 (09:17→21:12)
[2018-09-13] MEDS: HYDROmorphone PF Inj 2 MG/ML Vial IV.PUSH PRN ×2 (09:22→21:12)
--- NOTE | 2018-09-13 10:59 | P.PNIM ---
Subjective Interval history: Follow up for L1/L2, osteomyelitis and MSSA: Patient seen and examined, complains of increasing pain, asking for IV Dilaudid. States that p.o. is not working. Informed patient that he will be going home on p.o. narcotics. Had bowel movement. No nausea, no vomiting. Asking about discharge plan. No fever overnight Physical Exam Vital signs: Vital Signs 09/12/18 12:00 09/12/18 16:00 09/12/18 20:00 Temperature 97.8 F 97.6 F 97.8 F Pulse Rate 69 62 70 Respiratory Rate 16 17 16 Blood Pressure 136/74 133/69 100/49 L Pulse Oximetry 96 97 96 09/13/18 00:00 09/13/18 08:00 Temperature 98.2 F 97.9 F Pulse Rate 59 L 72 Respiratory Rate 16 21 Blood Pressure 118/64 173/87 H Pulse Oximetry 96 95 Intake & Output 09/12/18 09/13/18 09/13/18 18:59 06:59 18:59 Intake Total 810 / 810 1540 / 1540 480 / 480 Output Total 200 / 200 Balance 810 / 810 1540 / 1540 280 / 280 Intake: IV 50 / 50 100 / 100 Ancef 2 GM Premix Inj 2 gm In 50 / 50 100 / 100 50 ml @ 200 mls/hr IV.SIG Q8H MARIVEL Rx#:[id number] Oral 760 / 760 1440 / 1440 480 / 480 Output: Urine 200 / 200 Other: # Voids 5 # Incontinent Voids 4 Date of Last Bowel Movement 09/12/18 09/12/18 # Incontinent Bowel Movements 2 Narrative: GENERAL: 53-year-old well-developed well-nourished male. SKIN: Warm and dry. Scar noted to left upper chest wall below clavicle, tender to palpation, no erythema, no drainage, no fluctuance noted. HEAD: Atraumatic. Normocephalic. EYES: Pupils equal and round. No scleral icterus. No injection or drainage. ENT: No nasal bleeding or discharge. Mucous membranes pink and moist. NECK: Trachea midline. No JVD. CARDIOVASCULAR: Regular rate and rhythm. RESPIRATORY: No accessory muscle use. Clear to auscultation. Breath sounds equal bilaterally. GASTROINTESTINAL: Abdomen soft, non-tender, nondistended. Hepatic and splenic margins not palpable. MUSCULOSKELETAL: Extremities without clubbing, cyanosis, or edema. No obvious deformities. Lumbar spine with incision, no exudate. Less erythema distal to incision NEUROLOGICAL: Awake and alert. No obvious cranial nerve deficits. Motor grossly within normal limits. Five out of 5 muscle strength in the arms and 4 out of 5 legs. Normal speech. PSYCHIATRIC: Appropriate mood and affect; insight and judgment normal. Urinary Catheter Management Straight: Cath placed during this visit: yes Reason for continuing: Not indwelling catheter Insertion date: 09/07/18 Insertion time: 17:30 Results Labs CBC & Chem 7: 09/07/18 02:46 09/09/18 08:55 Assessment and Plan (1) Osteomyelitis of lumbar spine: Code(s): M46.26 - Osteomyelitis of vertebra, lumbar region Status: Chronic (2) Discitis of lumbar region: Code(s): M46.46 - Discitis, unspecified, lumbar region Status: Acute Plan 53-year-old male with PMHx of L1/L2 osteomyelitis/MSSA 2017 was receiving Cefazolin via PICC line to the right upper extremity. Also history of hypertension, osteoporosis, COPD, nephrolithiasis and obstructive sleep apnea. Known history of cholelithiasis. Presented to the ED emergency department at [facility] in [place] with increasing low back pain. He is currently taking acetaminophen for pain relief. Patient was transferred to [facility] for possible neurosurgery. Pt. accepted by Dr. Melendez and admitted to [facility] services. MRI of the lumbar spine revealed interval progression of discitis at L1/L2 with minimal progression of vertebral body height loss at L2. Retropulsion of the posterior- superior cortex associated disc bulging central disc protrusion causing moderate spinal canal stenosis. T12 osteomyelitis. Unchanged phlegmon with adjacent psoas musculature and bilateral L2/3 neuroforaminal surrounding is in the L2/4. Patient has been hemodynamically stable, was transferred to hospitalist services. Chronic L1/2 osteomyelitis, + MSSA Hx of MSSA bacteremia, hx of clavicular abscess Noncompliance with antibiotic treatment Lumbar spine MRI, findings consistent with discitis osteomyelitis at L1-L2 with prominent compression deformity of L2, cleft of fluid signal corresponding to the disc space, focal signal abnormality and abnormal enhancement involving the right anterior inferior endplate of T12 concerning for second focus of ostium mellitus, no epidural abscess, minimal ill-defined prevertebral phlegmonous changes without focal drainable fluid collection, subcutaneous 2.5 x 3 x 2.4 cm abscess in the posterior soft tissue at T12-L1 level -Status post CT-guided biopsy 09/07, continue to follow culture -Appreciate ID input, discussed with Dr. Capellan-discontinued ceftriaxone and Flagyl, recommends to continue Vanco, restarted Ancef 2 GM q 8 -CRP trended down since last admission -Neurosurgery has evaluated, recommends to continue antibiotics, no neurosurgical intervention is required. Recommend TLSO brace when out of bed -Continue with present pain management-increased Percocet to 10/325 1 p.o. every 4 as needed. Will start weaning off IV Dilaudid. Continue with physical therapy -Cultures finalized, appreciate ID input, recommendations provided-continue with IV Ancef 2 g IV every 8. Patient already has PICC line right upper extremity. Patient is to follow-up with Dr. Mathias Hx of Low IgM -In July was evaluated by Dr. Ram, immunodeficiency workup done. Status post IVIG infusion 08/09/2018. At that time, ami believed the patient did not have primary immunodeficiency and this was likely reactive -Dr. Capellan recommends checking immunoglobulins and if low may need IVIG infusion and reevaluation by Dr. Ram, will follow up on levels. -IgM 22, IgE 435, IgG 1630, IgA 359. -Dr. Ram's input appreciated, S/P IVIG 09/09 -heme signed off Questionable Noncompliance with tx -d/w CM, per C, pt. non compliant with treatment. Unclear how many abx doses he missed. -pt. adamantly denies missing meds, confirmed with ex- as he has been staying with her. Essential hypertension -Continue metoprolol tartrate 50 mg twice daily and lisinopril 10 mg twice daily History of COPD Obstructive sleep apnea -Duonebs PRN -stable, continue to monitor Constipation Continue with bowel regimen, discussed with RN to give as needed meds today GI Prophylaxis-pantoprazole DVT prophyalaxis -SCD/heparin subcu CM following, waiting for [facility] to finalize arrangements. Patient is ready for discharge home with home health care Needs to follow-up with Dr. Mathias, waiting for callback from their office Hopefully arrangements can be made today and patient will be going home. Code Status: Full code Discussed Condition With: RN, pt, CM Dr. Saleh Discharge Planning: Patient is ready for discharge, waiting on [facility] to complete antibiotic arrangements at patient's home versus infusion center. Progress Note: Quality VTE Deep Vein Thrombosis/Pulmonary Embolism Present on Admission: No
[2018-09-14] MEDS: oxyCODONE/Acetaminophen 10/325 Tablet PO PRN ×4 (02:59→14:00)
[2018-09-14] MEDS: ceFAZolin 2 GM Premix Inj 2 GM/50 ML PIGGYBACK IV.SIG SCH ×2 (06:41→20:17)
[2018-09-14] MEDS: Metoprolol Tartrate 50 MG Tablet PO SCH (08:54)
[2018-09-14] MEDS: Lisinopril 10 MG Tablet PO SCH (08:54)
[2018-09-14] MEDS: Gabapentin 300 MG Capsule PO SCH ×2 (08:54→13:24)
[2018-09-14] MEDS: Ferrous Sulfate 325 MG Tablet PO SCH (08:54)
[2018-09-14] MEDS: Senna/Docusate Sodium 8.6/50 MG Tablet PO SCH (08:54)
--- NOTE | 2018-09-14 11:30 | P.PNIM ---
Subjective Interval history: Follow up for L1/L2, osteomyelitis and MSSA: Patient seen and examined, complains of increasing pain, anxious to go home. Understands he has to wait but he can't sit in hospital any longer. Pain well controlled, no cp , no sob, no fever. Physical Exam Vital signs: Vital Signs 09/13/18 12:00 09/13/18 16:00 09/13/18 20:00 Temperature 97.7 F 98.2 F 97.3 F L Pulse Rate 75 59 L 73 Respiratory Rate 20 19 20 Blood Pressure 117/71 118/64 102/61 Pulse Oximetry 96 97 97 09/14/18 00:00 09/14/18 08:00 Temperature 97.4 F L 97.8 F Pulse Rate 63 63 Respiratory Rate 20 20 Blood Pressure 122/69 131/67 Pulse Oximetry 98 97 Intake & Output 09/13/18 09/14/18 09/14/18 18:59 06:59 18:59 Intake Total 2600 / 2600 530 / 530 Output Total 600 / 600 450 / 450 Balance 1999 80 / 80 Weight 73.4 kg Intake: IV 50 / 50 50 / 50 Ancef 2 GM Premix Inj 2 gm In 50 / 50 50 / 50 50 ml @ 200 mls/hr IV.SIG Q8H MARIVEL Rx#:[id number] Oral 2550 / 2550 480 / 480 Output: Urine 600 / 600 450 / 450 Other: # Voids 5 Date of Last Bowel Movement 09/12/18 09/12/18 09/12/18 Narrative: GENERAL: 53-year-old well-developed well-nourished male. SKIN: Warm and dry. Scar noted to left upper chest wall below clavicle, tender to palpation, no erythema, no drainage, no fluctuance noted. HEAD: Atraumatic. Normocephalic. EYES: Pupils equal and round. No scleral icterus. No injection or drainage. ENT: No nasal bleeding or discharge. Mucous membranes pink and moist. NECK: Trachea midline. No JVD. CARDIOVASCULAR: Regular rate and rhythm. RESPIRATORY: No accessory muscle use. Clear to auscultation. Breath sounds equal bilaterally. GASTROINTESTINAL: Abdomen soft, non-tender, nondistended. Hepatic and splenic margins not palpable. MUSCULOSKELETAL: Extremities without clubbing, cyanosis, or edema. No obvious deformities. Lumbar spine with incision, no exudate. Less erythema distal to incision NEUROLOGICAL: Awake and alert. No obvious cranial nerve deficits. Motor grossly within normal limits. Five out of 5 muscle strength in the arms and 4 out of 5 legs. Normal speech. PSYCHIATRIC: Appropriate mood and affect; insight and judgment normal. Urinary Catheter Management Straight: Cath placed during this visit: yes Reason for continuing: Not indwelling catheter Insertion date: 09/07/18 Insertion time: 17:30 Results Labs CBC & Chem 7: 09/07/18 02:46 09/09/18 08:55 Assessment and Plan (1) Osteomyelitis of lumbar spine: Code(s): M46.26 - Osteomyelitis of vertebra, lumbar region Status: Chronic (2) Discitis of lumbar region: Code(s): M46.46 - Discitis, unspecified, lumbar region Status: Acute Plan 53-year-old male with PMHx of L1/L2 osteomyelitis/MSSA 2017 was receiving Cefazolin via PICC line to the right upper extremity. Also history of hypertension, osteoporosis, COPD, nephrolithiasis and obstructive sleep apnea. Known history of cholelithiasis. Presented to the ED emergency department at [facility] in [place] with increasing low back pain. He is currently taking acetaminophen for pain relief. Patient was transferred to [facility] for possible neurosurgery. Pt. accepted by Dr. Melendez and admitted to [facility] services. MRI of the lumbar spine revealed interval progression of discitis at L1/L2 with minimal progression of vertebral body height loss at L2. Retropulsion of the posterior- superior cortex associated disc bulging central disc protrusion causing moderate spinal canal stenosis. T12 osteomyelitis. Unchanged phlegmon with adjacent psoas musculature and bilateral L2/3 neuroforaminal surrounding is in the L2/4. Patient has been hemodynamically stable, was transferred to hospitalist services. Chronic L1/2 osteomyelitis, + MSSA Hx of MSSA bacteremia, hx of clavicular abscess Noncompliance with antibiotic treatment Lumbar spine MRI, findings consistent with discitis osteomyelitis at L1-L2 with prominent compression deformity of L2, cleft of fluid signal corresponding to the disc space, focal signal abnormality and abnormal enhancement involving the right anterior inferior endplate of T12 concerning for second focus of ostium mellitus, no epidural abscess, minimal ill-defined prevertebral phlegmonous changes without focal drainable fluid collection, subcutaneous 2.5 x 3 x 2.4 cm abscess in the posterior soft tissue at T12-L1 level -Status post CT-guided biopsy 09/07, continue to follow culture -Appreciate ID input, discussed with Dr. Capellan-discontinued ceftriaxone and Flagyl, recommends to continue Vanco, restarted Ancef 2 GM q 8 -CRP trended down since last admission -Neurosurgery has evaluated, recommends to continue antibiotics, no neurosurgical intervention is required. Recommend TLSO brace when out of bed -Continue with present pain management-increased Percocet to 10/325 1 p.o. every 4 as needed. Will start weaning off IV Dilaudid. Continue with physical therapy -Cultures finalized, appreciate ID input, recommendations provided-continue with IV Ancef 2 g IV every 8. Patient already has PICC line right upper extremity. Patient is to follow-up with Dr. Mathias -RN to educate pt's exwife on med administration. CM finalizing arrangements Hx of Low IgM -In July was evaluated by Dr. Ram, immunodeficiency workup done. Status post IVIG infusion 08/09/2018. At that time, ami believed the patient did not have primary immunodeficiency and this was likely reactive -Dr. Capellan recommends checking immunoglobulins and if low may need IVIG infusion and reevaluation by Dr. Ram, will follow up on levels. -IgM 22, IgE 435, IgG 1630, IgA 359. -Dr. Ram's input appreciated, S/P IVIG 09/09 -heme signed off Questionable Noncompliance with tx -d/w CM, per [facility], pt. non compliant with treatment. Unclear how many abx doses he missed. -pt. adamantly denies missing meds, confirmed with ex- as he has been staying with her. Essential hypertension -Continue metoprolol tartrate 50 mg twice daily and lisinopril 10 mg twice daily History of COPD Obstructive sleep apnea -Duonebs PRN -stable, continue to monitor Constipation Continue with bowel regimen, discussed with RN to give as needed meds today GI Prophylaxis-pantoprazole DVT prophyalaxis -SCD/heparin subcu CM following, Cm finalizing arrangements Discharge home today with [facility] Compliance with treatment emphasized Needs to follow-up with Dr. Mathias, waiting for callback from their office Diet -heart healthy Activity-as tolerated Code Status: Full code Discussed Condition With: RN, pt, CM Dr. Delfino Capellan Discharge Planning: Discharge home today with [facility] Progress Note: Quality VTE Deep Vein Thrombosis/Pulmonary Embolism Present on Admission: No
--- NOTE | 2018-09-14 11:35 | P.DCO ---
Diagnosis (1) Osteomyelitis of lumbar spine: Status: Chronic (2) Discitis of lumbar region: Status: Acute Home Health Nursing Order: Medical education, Signs/symptoms of disease process, Nursing assessment with vital signs and IV medication administration Case Management Consult Case Management Consult-Home Health: Yes I have seen patient Nathaniel Mcgraw on 09/14/18. My clinical findings support the need for the requested home health care services because: Deconditioned with increased weakness, Limited ability to care for self, Infection with risk of complications and Injectable medication education/ administration I certify that my clinical findings support that this patient is homebound because: Post-op weakness and Unsteady gait/balance
[2018-09-14 12:41] VITALS: BP 102/59; PULSE 53; TEMP 97.2; O2SAT 99
[2018-09-14] MEDS ORDERED: ceFAZolin Inj 1 GM in Sodium Chlor 0.9% Inj 100 ML IV.SIG ONE (13:10)
[2018-09-14 20:18] VITALS: RESP 20
--- NOTE | 2018-09-15 16:02 | P.DS ---
DS: Providers Date of admission: 09/06/18 21:00 Primary care physician: UNKNOWN Attending physician on admission: Froy Villalobos Consults: 09/06/18 21:37 Consult to Neurosurgery Routine Consulting Provider: Corbin Melendez Reason for Consultation: Osteomyelitis L1/L2. Dr. Melendez accepted pt from [facility]. Spoke with:: ADDED TO LIST - COURTESY CALL IN MORNING Date Notified:: 09/06/18 Time Notified:: 22:23 Ordering Provider: MEENA 09/06/18 21:38 Consult to Infectious Diseases Routine Consulting Provider: Anyi Capellan Reason for Consultation: Osteomyelitis. MSSA Antibiotic assistance. Notified:: Service Spoke with:: LIZZETH Date Notified:: 09/06/18 Time Notified:: 22:13 Comments:: At 1450 - Resheeka from call center change doctors per dr. beck Ordering Provider: MEENA 09/07/18 13:10 Consult to Hospitalist Routine Consulting Provider: Zoe Wesley Reason for Consultation: Assume care in am 09/08/18 Notified:: Service Spoke with:: FORTINO Date Notified:: 09/07/18 Time Notified:: 13:18 Comments:: WAITING BED AND BREAKFAST COOK BACK Ordering Provider: NUNO 09/08/18 16:58 Consult to Hematology Routine Consulting Provider: Tim Ram Vice President Supply Chain:: Tim Ram Reason for Consultation: Low IgM, pt. known to you. Recently evaluated for immunodeficiency Notified:: Service Spoke with:: nico Date Notified:: 09/08/18 Time Notified:: 17:12 Ordering Provider: KENISHA Attending physician on discharge: Jade Saleh Discharging clinician: Aditi Luke Anticipated date of discharge: 09/14/18 Brief History from admission: 53-year-old male. Date of admission . Past medical history includes history of L1/L2 osteomyelitis/MSSA which receives cefazolin via PICC line to the right upper extremity. Also history of hypertension, osteoporosis, COPD, nephrolithiasis and obstructive sleep apnea. Known history of cholelithiasis. In alcohol use he presented to the ED emergency department at [facility] in [place] with increasing low back pain. He is currently taking acetaminophen for pain relief. He is also complaining of nausea vomiting. Denied any focal weakness. Abdominal pain, headache or vision changes. His medication regimen is not clear. Patient was resumed to [facility] on with recurrent osteomized. His history in February 2018 is incision and drainage. He was on antibiotics until March. He had persistent bone pain and presented to the hospital June was found to have lumbar ostium mellitus underwent lumbar laminectomy. He did not receive any antibiotics and was discharged from the hospital in early July. He ran out of the oxycodone was having increasing pain with the hospital. Imaging revealed likely chronic bilateral discitis of L1/L2. He was treated with 5 days IV ceftriaxone using a PICC line as an outpatient. Cultures during the last admission for MSSA sensitive. Patient has been on cefazolin 2 g every 8 hours with a stop date of September 22, 2017. Patient states he has been compliant with his medication regimen. He is having worsening back pain presented to the [facility] for evaluation treatment. MRI of the lumbar spine revealed interval progression of discitis at L1/L2 with minimal progression of vertebral body height loss at L2. Retropulsion of the posterior-superior cortex associated disc bulging central disc protrusion causing moderate spinal canal stenosis. T12 osteomyelitis. Unchanged phlegmon with adjacent psoas musculature and bilateral L2/3 neuroforaminal surrounding is in the L2/4. Patient was accepted by Dr. Melendez DS: Diagnosis Discharge Diagnosis (1) Osteomyelitis of lumbar spine: Status: Chronic (2) Discitis of lumbar region: Status: Acute DS: Summary 53-year-old male with PMHx of L1/L2 osteomyelitis/MSSA 2017 was receiving Cefazolin via PICC line to the right upper extremity. Also history of hypertension, osteoporosis, COPD, nephrolithiasis and obstructive sleep apnea. Known history of cholelithiasis. Presented to the ED emergency department at [facility] in [place] with increasing low back pain. He is currently taking acetaminophen for pain relief. Patient was transferred to [facility] for possible neurosurgery. Pt. accepted by Dr. Melendez and admitted to [facility] services. MRI of the lumbar spine revealed interval progression of discitis at L1/L2 with minimal progression of vertebral body height loss at L2. Retropulsion of the posterior- superior cortex associated disc bulging central disc protrusion causing moderate spinal canal stenosis. T12 osteomyelitis. Unchanged phlegmon with adjacent psoas musculature and bilateral L2/3 neuroforaminal surrounding is in the L2/4. Patient has been hemodynamically stable, was transferred to hospitalist services. Chronic L1/2 osteomyelitis, + MSSA Hx of MSSA bacteremia, hx of clavicular abscess Noncompliance with antibiotic treatment Lumbar spine MRI, findings consistent with discitis osteomyelitis at L1-L2 with prominent compression deformity of L2, cleft of fluid signal corresponding to the disc space, focal signal abnormality and abnormal enhancement involving the right anterior inferior endplate of T12 concerning for second focus of ostium mellitus, no epidural abscess, minimal ill-defined prevertebral phlegmonous changes without focal drainable fluid collection, subcutaneous 2.5 x 3 x 2.4 cm abscess in the posterior soft tissue at T12-L1 level -Sent to IR, status post CT-guided biopsy 09/07. -Appreciate ID input, discussed with Dr. Capellan-discontinued ceftriaxone and Flagyl, recommended to continue Vanco, restarted Ancef 2 GM q 8 -CRP trended down since last admission -Neurosurgery valuated, recommended to continue antibiotics, no neurosurgical intervention was required. Recommended TLSO brace when out of bed, PT to assist with application of brace -Continue with present pain management- Percocet to 10/325 1 p.o. every 4 as needed. IV Dilaudid initially and was weaned down. PT ordered to assist with mobility -Cultures finalized, recommendations provided-continue with IV Ancef 2 g IV every 8. Patient already had PICC line right upper extremity. Patient is to follow-up with Dr. Mathias -RN educateed pt's exwife on med administration. CM arranged [facility] for IV abx Hx of Low IgM -In July was evaluated by Dr. Ram, immunodeficiency workup done. Status post IVIG infusion 08/09/2018. At that time, heme believed the patient did not have primary immunodeficiency and this was likely reactive -Dr. Capellan recommends checking immunoglobulins and if low may need IVIG infusion and reevaluation by Dr. Ram, will follow up on levels. -IgM 22, IgE 435, IgG 1630, IgA 359. -Dr. Ram's input appreciated, S/P IVIG 09/09 -heme signed off Questionable Noncompliance with tx -d/w CM, per [facility], pt. non compliant with treatment. Unclear how many abx doses he missed. -pt. adamantly denies missing meds, confirmed with ex- as he had been staying with her. Essential hypertension -Continued metoprolol tartrate 50 mg twice daily and lisinopril 10 mg twice daily -BP remained stable History of COPD Obstructive sleep apnea -Duonebs PRN -stable,no distress Constipation Continued with bowel regimen -Had BM CM following, arraned [facility] and approval of antibiotics Compliance with treatment emphasized Needs to follow-up with Dr. Stew Gardner -heart healthy Activity-as tolerated Time Spent with Patient Total time spent providing and/or coordinating discharge services: 50 minutes Greater than 30 minutes Status at Discharge Functional status at discharge: uses cane/walker Overall status at discharge: patient is progressing back to baseline Quality: VTE Deep Vein Thrombosis/Pulmonary Embolism Present on Admission: No Results Labs on day of discharge: Preliminary micro results at discharge 09/07/18 16:09 Fungal Culture - Preliminary Fluid - Other No growth in 1 week 09/07/18 16:09 Mycobacterial Culture - Preliminary Fluid - Other No growth in 1 week Impressions ITS Impressions Needle Biopsy/Aspiration X-Ray 09/07/18 00:00 CONCLUSION: 1. Uncomplicated needle biopsy of the L1/L2 disc as above. Lumbar Spine MRI 09/07/18 08:51 CONCLUSION: 1. Findings consistent with discitis and osteomyelitis at L1-2 with prominent compression deformity of the L2 superior endplate and retropulsion of the posterior L2 cortex resulting in central canal narrowing to about 8 mm. There is a cleft of fluid signal corresponding to the disc space. Consider atypical infection. 2. Focal signal abnormality and abnormal enhancement involving the right anterior inferior endplate of T12 concerning for second focus of osteomyelitis. 3. No evidence for epidural abscess. 4. Minimal ill-defined prevertebral phlegmonous changes without focal drainable fluid collection. 5. Subcutaneous 2.5 x 3.0 x 2.4 cm abscess in the posterior soft tissues at the T12-L1 level. Discharge Plan Discharge Disposition Patient Disposition: 01 Discharge Home Discharge Condition Condition: Stable Discharge Order Discharge Orders: Discharge Order (Routine); Ordered 09/14/18 Ordered By: Aditi Luke Discharge Details Anticipated Discharge Date: 09/11/18 Discharge Comment: wait until upper caser has set up home health care Physicians Team Primary Care Provider: UNKNOWN, Attending Provider: Jade Saleh Other Providers: Corbin Melendez ; Anyi Capellan ; Tim Ram Y Rxs /Orders / Referrals /Forms Prescriptions: New oxycodone-acetaminophen 10-325 mg Tablet 1 tab PO Q4H PRN (Reason: PAIN 6-10;IF ABLE TO TAKE PO) Qty: 18 RF: 0 Continue cefazolin in dextrose (iso-os) 2 gram/50 mL Piggyback 2 gm IV Q8H 42 Days Qty: 0 RF: 0 acetaminophen 325 mg Tablet 650 mg PO Q4H PRN (Reason: Pain 1-10 And/Or Fever >101f) Qty: 30 RF: 0 tizanidine [Zanaflex] 4 mg Tablet 4 mg PO BID Qty: 20 RF: 0 nortriptyline 25 mg Capsule 25 mg PO HS Qty: 30 RF: 0 ferrous sulfate [FeroSul] 325 mg (65 mg iron) Tablet 325 mg PO DAILY Qty: 30 RF: 3 lisinopril 10 mg Tablet 10 mg PO BID Qty: 60 RF: 3 metoprolol tartrate 50 mg Tablet 100 mg PO BID Qty: 60 RF: 3 gabapentin [Neurontin] 300 mg Capsule 300 mg PO TID Qty: 60 RF: 0 Referrals: Kamila Mathias MD [Physician] - See Instructions (Follow up with Dr. Mathias, call for appointment in 1-2 weeks) UNKNOWN, [Primary Care Provider] - See Instructions Discharge Instructions Patient Printed Instructions: Oxycodone/Acetaminophen (By mouth), Osteomyelitis (DC), Peripherally Inserted Central Catheters and Midline Catheters (DC) Post Discharge Care Plan Care Plan Goals: Your Health Problems: Goals to Promote Your Health: * To prevent worsening of your condition * To maintain your health at the optimal level Directions to Meet Your Goals: * Take your medications as prescribed * Follow your dietary instruction * Follow activity as directed * Keep your appointments as scheduled * Take your immunizations and boosters as scheduled * If your symptoms worsen call your PCP * If no PCP go to Urgent Care or Emergency Room Smoking is dangerous to your health. Avoid second hand smoke. You may reach the 24-hour crisis hotline for domestic abuse at . Discharge Information Discharge Date/Time: 09/14/18 14:29
== END 2018-09-14 14:29 | disposition home or self-care (01) | DRG 540 ==
LOC: N03 21:00 → N07 09-07 23:00
PROVIDERS: ADMIT Hospitalist; ATTEND Hospitalist
DX: D64.9 Anemia, unspecified; G47.33 Obstructive sleep apnea (adult) (pediatric); Z85.07 Personal history of malignant neoplasm of pancreas; R06.00 Dyspnea, unspecified; M46.26 Osteomyelitis of vertebra, lumbar region; J44.9 Chronic obstructive pulmonary disease, unspecified; K59.00 Constipation, unspecified; F10.10 Alcohol abuse, uncomplicated; M81.0 Age-related osteoporosis without current pathological fracture; Z87.01 Personal history of pneumonia (recurrent); R53.1 Weakness; Z86.14 Personal history of Methicillin resistant Staphylococcus aureus infection; M60.9 Myositis, unspecified; Z98.84 Bariatric surgery status; F17.290 Nicotine dependence, other tobacco product, uncomplicated; Z80.9 Family history of malignant neoplasm, unspecified; M19.90 Unspecified osteoarthritis, unspecified site; M54.5 Low back pain; R78.81 Bacteremia; B95.61 Methicillin susceptible Staphylococcus aureus infection as the cause of diseases classified elsewhere; Z87.442 Personal history of urinary calculi; I10 Essential (primary) hypertension; Z91.14 Patient's other noncompliance with medication regimen; Z90.49 Acquired absence of other specified parts of digestive tract; M46.36 Infection of intervertebral disc (pyogenic), lumbar region
CPT/HCPCS: 62267; 72158; 77003; 80053; 80202; 82550; 82565; 82784; 82785; 82948; 82962; 83735; 84100; 85025; 85610; 85651; 85652; 85730; 86140; 87015; 87040; 87070; 87102; 87116; 87205; 87206; 87641; 94150; 97110; 97116; 97163; 97530; 99145; 99152; 99153; A9585; J0690; J0696; J1170; J1459; J1644; J2060; J2250; J2405; J3010; J3370; J7030; J7040; J7050; L0200; L0484; L0560; L0565